=== PATIENT | female | born 1995 | race Caucasian/White ===

== ENCOUNTER 2023-10-12 15:27 | Outpatient (CLI) | payer OTHER, SELFPAY ==
[2023-10-12 17:59] LABS: Alanine Aminotransferase 21 U/L (12-78); Albumin Level 4.5 g/dl (3.5-5.0); Alkaline Phosphatase 45 U/L (38-126); Aspartate Amino Transferase 31 U/L (14-36); Bilirubin,Direct 0.1 mg/dl (0.0-0.4); Bilirubin,Indirect 0.4 mg/dL (0.0-0.9); Bilirubin,Total 0.5 mg/dl (0.2-1.3); Bilirubin,Unconjugated 0.4 mg/dL (0.0-1.1); Total Protein,Serum 7.2 g/dl (6.3-8.2)
== END 2023-10-12 23:59 | disposition home or self-care (01) ==
LOC: LAB 15:30
PROVIDERS: Visit Provider Internal Medicine Nephrology
DX: Q61.2 Polycystic kidney, adult type (principal)
CPT/HCPCS: 36415; 80076

== ENCOUNTER 2023-11-17 10:52 | Outpatient (CLI) | payer OTHER, SELFPAY ==
[2023-11-17 11:35] LABS: Alanine Aminotransferase 18 U/L (12-78); Aspartate Amino Transferase 28 U/L (14-36); Bilirubin,Unconjugated 0.5 mg/dL (0.0-1.1)
[2023-11-17 11:36] LABS: Albumin Level 4.8 g/dl (3.5-5.0); Alkaline Phosphatase 45 U/L (38-126); Bilirubin,Indirect 0.4 mg/dL (0.0-0.9); Bilirubin,Total 0.4 mg/dl (0.2-1.3); Total Protein,Serum 7.8 g/dl (6.3-8.2)
== END 2023-11-17 23:59 | disposition home or self-care (01) ==
LOC: LAB 10:53
PROVIDERS: Visit Provider Internal Medicine Nephrology
DX: Q61.2 Polycystic kidney, adult type (principal)
CPT/HCPCS: 36415; 80076

== ENCOUNTER 2023-11-27 16:40 | Outpatient (CLI) | payer OTHER, SELFPAY ==
[2023-11-27 16:58] LABS: Microscopic, Urine URINE MICROSCOPIC (MICROSCOPIC)
[2023-11-27 17:34] LABS: Basophils # 0.1 K/mm3 (0-0.2); Basophils % 0.8 % (0.1-2.0); Eosinophils # 0.1 K/mm3 (0.0-0.4); Eosinophils % 0.9 % (0.1-12.0); Hematocrit 38.2 % (37.0-47.0); Hemoglobin 12.7 g/dL (12.2-16.2); Lymphocytes # 2.1 K/mm3 (0.7-4.5); Lymphocytes % 32.8 % (10-50); Mean Corpuscular HGB Conc 33.2 g/dL (31.8-35.4); Mean Corpuscular Hemoglobin 31.5 pg (27.0-31.2); Mean Corpuscular Volume 94.9 fl (81-99); Monocytes # 0.4 K/mm3 (0.1-1.0); Monocytes % 6.2 % (1.7-9.3); Neutrophils # 3.8 K/mm3 (1.8-7.8); Neutrophils % 59.3 % (37.0-80.0); Platelet Count 282 K/mm3 (142-424); Red Blood Count 4.03 M/mm3 (4.20-5.40); White Blood Count 6.4 K/mm3 (4.8-10.8)
[2023-11-27 17:50] LABS: Chloride 107 mmol/L (98-107); Potassium 3.9 mmoL/L (3.5-5.1); Sodium 140 mmol/L (136-145)
[2023-11-27 17:52] LABS: Bilirubin,Unconjugated 0.6 mg/dL (0.0-1.1); Blood Urea Nitrogen 12 mg/dl (7-17); Estimated Glomerular Filt Rate 60 ml/min (>60); GFR (African American) 72 ML/MIN (>60)
[2023-11-27 17:53] LABS: Alanine Aminotransferase 19 U/L (12-78); Albumin Level 4.8 g/dl (3.5-5.0); Alkaline Phosphatase 52 U/L (38-126); Anion Gap 11.9 mEq/L (5-15); Aspartate Amino Transferase 29 U/L (14-36); Bilirubin,Indirect 0.6 mg/dL (0.0-0.9); Bilirubin,Total 0.6 mg/dl (0.2-1.3); Calcium 10.3 mg/dl (8.4-10.2); Carbon Dioxide 25 mmol/L (22.0-30.0); Glucose 94 mg/dl (74-100); Phosphorous 3.7 mg/dl (2.5-4.5); Total Protein,Serum 7.8 g/dl (6.3-8.2)
[2023-11-27 20:27] LABS: Appearance,Urine CLEAR (Clear); Bilirubin,Urine Negative (Negative); Blood, Urine 1+ (Negative); Color,Urine YELLOW (Yellow); Glucose,Urine (UA) Negative (Negative); Ketones,Urine Negative (Negative); Leukocyte Esterase,Urine Negative (Negative); Nitrate,Urine Negative (Negative); PH,Urine 6.5 (5.0-8.5); Protein,Urine TRACE (Negative); Specific Gravity, Urine <= 1.005 (1.005-1.030); Urobilinogen,Urine 0.2 EU/dl (0.2)
[2023-11-27 20:43] LABS: Microalbumin/Creatinine Ratio 725.9
[2023-11-27 20:48] LABS: Creatinine,Urine Random 22 mg/dL (Not Estab.)
[2023-11-27 20:50] LABS: Bacteria,Urine 1+ /lpf; Squamous Epithelial Cell,Urine 20-50 #/hpf (0-5)
== END 2023-11-27 23:59 | disposition home or self-care (01) ==
LOC: LAB 16:42
PROVIDERS: Visit Provider Internal Medicine Nephrology
DX: Q61.2 Polycystic kidney, adult type (principal)
CPT/HCPCS: 36415; 80069; 80076; 81001; 82043; 82570; 84156; 85025

== ENCOUNTER 2023-12-14 14:30 | Outpatient (CLI) | payer OTHER, SELFPAY ==
[2023-12-14 16:04] LABS: Alanine Aminotransferase 20 U/L (12-78); Albumin Level 4.6 g/dl (3.5-5.0); Albumin/Globulin Ratio 1.5 (1.1-1.8); Alkaline Phosphatase 44 U/L (38-126); Anion Gap 11.5 mEq/L (5-15); Aspartate Amino Transferase 30 U/L (14-36); Bilirubin,Indirect 0.5 mg/dL (0.0-0.9); Bilirubin,Total 0.5 mg/dl (0.2-1.3); Bilirubin,Unconjugated 0.6 mg/dL (0.0-1.1); Blood Urea Nitrogen 18 mg/dl (7-17); Calcium 9.8 mg/dl (8.4-10.2); Carbon Dioxide 26 mmol/L (22.0-30.0); Chloride 107 mmol/L (98-107); Estimated Glomerular Filt Rate 67 ml/min (>60); GFR (African American) 80 ML/MIN (>60); Glucose 99 mg/dl (74-100); Potassium 3.5 mmoL/L (3.5-5.1); Sodium 141 mmol/L (136-145); Total Protein,Serum 7.6 g/dl (6.3-8.2)
== END 2023-12-14 23:59 | disposition home or self-care (01) ==
LOC: LAB 14:33
PROVIDERS: Visit Provider Internal Medicine Nephrology
DX: Q61.2 Polycystic kidney, adult type (principal)
CPT/HCPCS: 36415; 80053; 80076

== ENCOUNTER 2024-01-18 07:22 | Outpatient (CLI) | payer OTHER, SELFPAY ==
[2024-01-18 08:29] LABS: Albumin Level 4.5 g/dl (3.5-5.0)
[2024-01-18 08:31] LABS: Alanine Aminotransferase 24 U/L (12-78); Aspartate Amino Transferase 32 U/L (14-36); Bilirubin,Unconjugated 0.8 mg/dL (0.0-1.1); Total Protein,Serum 7.1 g/dl (6.3-8.2)
[2024-01-18 08:32] LABS: Alkaline Phosphatase 42 U/L (38-126); Bilirubin,Indirect 0.8 mg/dL (0.0-0.9); Bilirubin,Total 0.8 mg/dl (0.2-1.3)
== END 2024-01-18 23:59 | disposition home or self-care (01) ==
LOC: LAB 07:22
PROVIDERS: Visit Provider Internal Medicine Nephrology
DX: Q61.2 Polycystic kidney, adult type (principal)
CPT/HCPCS: 36415; 80076

== ENCOUNTER 2024-02-13 15:09 | Outpatient (CLI) | payer OTHER, SELFPAY ==
[2024-02-13 16:39] LABS: Alanine Aminotransferase 23 U/L (12-78); Albumin Level 4.6 g/dl (3.5-5.0); Alkaline Phosphatase 38 U/L (38-126); Aspartate Amino Transferase 30 U/L (14-36); Bilirubin,Direct 0.2 mg/dl (0.0-0.4); Bilirubin,Indirect 0.3 mg/dL (0.0-0.9); Bilirubin,Total 0.5 mg/dl (0.2-1.3); Bilirubin,Unconjugated 0.3 mg/dL (0.0-1.1); Total Protein,Serum 7.1 g/dl (6.3-8.2)
== END 2024-02-13 23:59 | disposition home or self-care (01) ==
LOC: LAB 15:10
PROVIDERS: Visit Provider Internal Medicine Nephrology
DX: Q61.2 Polycystic kidney, adult type (principal)
CPT/HCPCS: 36415; 80076

== ENCOUNTER 2024-02-27 15:22 | Outpatient (CLI) | payer OTHER, SELFPAY ==
[2024-02-27 15:39] LABS: Microscopic, Urine URINE MICROSCOPIC (MICROSCOPIC)
[2024-02-27 16:07] LABS: Appearance,Urine CLEAR (Clear); Bilirubin,Urine Negative (Negative); Blood, Urine Negative (Negative); Color,Urine YELLOW (Yellow); Glucose,Urine (UA) Negative (Negative); Ketones,Urine Negative (Negative); Leukocyte Esterase,Urine TRACE (Negative); Nitrate,Urine Negative (Negative); Protein,Urine Negative (Negative); Specific Gravity, Urine <= 1.005 (1.005-1.030); Urobilinogen,Urine 0.2 EU/dl (0.2)
[2024-02-27 16:11] LABS: Basophils # 0.1 K/mm3 (0-0.2); Basophils % 0.8 % (0.1-2.0); Eosinophils # 0.1 K/mm3 (0.0-0.4); Hematocrit 38.8 % (37.0-47.0); Hemoglobin 13.3 g/dL (12.2-16.2); Lymphocytes # 1.9 K/mm3 (0.7-4.5); Lymphocytes % 33.3 % (10-50); Mean Corpuscular HGB Conc 34.4 g/dL (31.8-35.4); Mean Corpuscular Hemoglobin 31.9 pg (27.0-31.2); Mean Corpuscular Volume 92.9 fl (81-99); Mean Platelet Volume 7.3 fl (7.4-10.4); Monocytes # 0.4 K/mm3 (0.1-1.0); Monocytes % 6.6 % (1.7-9.3); Neutrophils # 3.3 K/mm3 (1.8-7.8); Neutrophils % 58.3 % (37.0-80.0); Platelet Count 255 K/mm3 (142-424); Red Blood Count 4.17 M/mm3 (4.20-5.40); Red Cell Distribution Width 12.9 % (11.5-17.5); White Blood Count 5.7 K/mm3 (4.8-10.8)
[2024-02-27 16:14] LABS: Bacteria,Urine Trace /lpf; RBC,Urine Occasional #/hpf (0-3); Squamous Epithelial Cell,Urine Occasional #/hpf (0-5); WBC,Urine Occasional #/hpf (0-3)
[2024-02-27 16:18] LABS: Creatinine,Urine Random 11 mg/dL (Not Estab.)
[2024-02-27 17:19] LABS: Albumin Level 4.8 g/dl (3.5-5.0); Chloride 105 mmol/L (98-107); Potassium 4.1 mmoL/L (3.5-5.1); Sodium 140 mmol/L (136-145)
[2024-02-27 17:22] LABS: Anion Gap 15.1 mEq/L (5-15); Blood Urea Nitrogen 17 mg/dl (7-17); Calcium 9.8 mg/dl (8.4-10.2); Carbon Dioxide 24 mmol/L (22.0-30.0); Estimated Glomerular Filt Rate 53 ml/min (>60); GFR (African American) 65 ML/MIN (>60); Glucose 88 mg/dl (74-100); Phosphorous 3.9 mg/dl (2.5-4.5)
== END 2024-02-27 23:59 | disposition home or self-care (01) ==
LOC: LAB 15:23
PROVIDERS: Visit Provider Student in an Organized Health Care Education/Training Program
DX: Q61.2 Polycystic kidney, adult type (principal)
CPT/HCPCS: 36415; 80069; 81001; 82570; 84156; 85025

== ENCOUNTER 2024-03-19 14:42 | Outpatient (CLI) | payer OTHER, SELFPAY ==
[2024-03-19 16:05] LABS: Alanine Aminotransferase 20 U/L (12-78); Albumin Level 4.6 g/dl (3.5-5.0); Albumin/Globulin Ratio 1.9 (1.1-1.8); Alkaline Phosphatase 29 U/L (38-126); Anion Gap 13.1 mEq/L (5-15); Aspartate Amino Transferase 28 U/L (14-36); Bilirubin,Direct 0.3 mg/dl (0.0-0.4); Bilirubin,Total 0.5 mg/dl (0.2-1.3); Blood Urea Nitrogen 19 mg/dl (7-17); Calcium 9.3 mg/dl (8.4-10.2); Carbon Dioxide 24 mmol/L (22.0-30.0); Chloride 106 mmol/L (98-107); Estimated Glomerular Filt Rate 75 ml/min (>60); GFR (African American) 90 ML/MIN (>60); Globulin 2.4 g/dL (1.3-3.2); Glucose 73 mg/dl (74-100); Potassium 4.1 mmoL/L (3.5-5.1); Sodium 139 mmol/L (136-145)
== END 2024-03-19 23:59 | disposition home or self-care (01) ==
LOC: LAB 14:43
PROVIDERS: Visit Provider Internal Medicine Nephrology
DX: Q61.2 Polycystic kidney, adult type (principal)
CPT/HCPCS: 36415; 80053; 82248

== ENCOUNTER 2024-05-16 12:38 | Outpatient (CLI) | payer OTHER, SELFPAY ==
[2024-05-16 12:43] LABS: Microscopic, Urine URINE MICROSCOPIC (MICROSCOPIC)
[2024-05-16 12:53] LABS: Hematocrit 38.7 % (37.0-47.0); Hemoglobin 13.3 g/dL (12.2-16.2); Mean Corpuscular HGB Conc 34.4 g/dL (31.8-35.4); Mean Corpuscular Hemoglobin 31.4 pg (27.0-31.2); Mean Corpuscular Volume 91.3 fl (81-99); Platelet Count 255 K/mm3 (142-424); Red Blood Count 4.24 M/mm3 (4.20-5.40); Red Cell Distribution Width 11.7 % (11.5-17.5); White Blood Count 6.2 K/mm3 (4.8-10.8)
[2024-05-16 13:28] LABS: Appearance,Urine CLEAR (Clear); Bilirubin,Urine Negative (Negative); Blood, Urine Negative (Negative); Color,Urine YELLOW (Yellow); Glucose,Urine (UA) Negative (Negative); Ketones,Urine Negative (Negative); Leukocyte Esterase,Urine Negative (Negative); Nitrate,Urine Negative (Negative); Protein,Urine Negative (Negative); Urobilinogen,Urine 0.2 EU/dl (0.2)
[2024-05-16 13:35] LABS: Alanine Aminotransferase 21 U/L (12-78); Albumin Level 5.3 g/dl (3.5-5.0); Alkaline Phosphatase 35 U/L (38-126); Anion Gap 12.8 mEq/L (5-15); Aspartate Amino Transferase 34 U/L (14-36); Bilirubin,Direct 0.3 mg/dl (0.0-0.4); Bilirubin,Indirect 0.7 mg/dL (0.0-0.9); Bilirubin,Unconjugated 0.8 mg/dL (0.0-1.1); Blood Urea Nitrogen 13 mg/dl (7-17); Calcium 10.2 mg/dl (8.4-10.2); Carbon Dioxide 25 mmol/L (22.0-30.0); Chloride 104 mmol/L (98-107); Estimated Glomerular Filt Rate 66 ml/min (>60); GFR (African American) 80 ML/MIN (>60); Glucose 101 mg/dl (74-100); Phosphorous 3.8 mg/dl (2.5-4.5); Potassium 3.8 mmoL/L (3.5-5.1); Sodium 138 mmol/L (136-145); Total Protein,Serum 7.8 g/dl (6.3-8.2)
[2024-05-16 14:03] LABS: Creatinine,Urine Random 48 mg/dL (Not Estab.)
[2024-05-16 14:06] LABS: Bacteria,Urine Trace /lpf; Squamous Epithelial Cell,Urine Occasional #/hpf (0-5)
== END 2024-05-16 23:59 | disposition home or self-care (01) ==
LOC: LAB 12:38
PROVIDERS: Visit Provider Internal Medicine Nephrology
DX: Q61.2 Polycystic kidney, adult type (principal)
CPT/HCPCS: 36415; 80069; 80076; 81001; 82043; 82570; 84156; 85027

== ENCOUNTER 2024-05-30 09:52 | Inpatient (IN) | payer OTHER, SELFPAY ==
[2024-05-30] VITALS (13 sets, daily range): BP systolic 102–138; BP diastolic 58–93; PULSE 92–123; RESP 17–20; TEMP 36.8–37.7; O2SAT 95–100; BMI 22.8; BMI 22.7
[2024-05-30 10:07] LABS: Microscopic, Urine URINE MICROSCOPIC (MICROSCOPIC)
[2024-05-30 10:13] LABS: Appearance,Urine CLOUDY (Clear); Blood, Urine 3+ (Negative); Color,Urine AMBER (Yellow); Glucose,Urine (UA) Negative (Negative); Ketones,Urine Negative (Negative); Leukocyte Esterase,Urine TRACE (Negative); Nitrate,Urine Negative (Negative); PH,Urine 6.5 (5.0-8.5); Protein,Urine 2+ (Negative); Urobilinogen,Urine 0.2 EU/dl (0.2)
[2024-05-30 10:14] LABS: Urine Pregnancy, HCG Qual. Negative (Negative)
--- NOTE | 2024-05-30 10:17 | CT_ITS ---
FINAL REPORT TECHNIQUE: IV contrast enhanced exam This study was performed with techniques to keep radiation doses as low as reasonably achievable, (ALARA). Individualized dose reduction techniques using automated exposure control or adjustment of mA and/or kV according to the patient''s size were employed. CLINICAL HISTORY: pyelo, cf renal abscess FINDINGS: Abdomen: No acute density is seen within the lung bases. There is mild hepatosplenomegaly. Spleen measures up to 12.8 cm. There is significant renal enlargement, due to polycystic renal disease. Many of the renal lesions are complex, presumably related to proteinaceous cysts although soft tissue mass is not excluded. The kidneys are significantly enlarged with the left side measuring up to 17.3 cm. The renal parenchyma is difficult to evaluate due to cystic disease largely replacing the parenchyma. However, right perinephric stranding makes findings suspicious for right-sided pyelonephritis. There is no associated obstruction. Secondary infection of a lower pole right renal cyst cannot be excluded. There is no bowel obstruction or free fluid. Pelvis: The appendix is not visualized. An IUD is in place. There is fluid and air within the vaginal cavity which could be related to patient's menses, however if there has been no physical exam, presence of air raises question of infection. The urinary bladder is unremarkable. IMPRESSION: Inflammatory changes surrounding the lower pole right kidney suspicious for pyelonephritis, secondary infection of lower pole right renal cyst is not excluded. No evidence of upper urinary tract infection. Air in good within the vaginal cavity, infection not excluded although this could be related to patient's menses. Please correlate with clinical presentation. Reviewed, Interpreted and Dictated by Viloeta Yanez MD Transcribed by Beverly Nichols Authenticated and [facility]
[2024-05-30] MEDS: HYDROMORPHONE 2MG/ML SYRINGE 0.5 MG IV ×4 (10:21→20:38)
[2024-05-30] MEDS: LACTATED RINGERS 1000ML 1,000 ML 999 ML IV (10:21)
[2024-05-30] MEDS: ONDANSETRON 4MG/2ML VIAL 4 MG IV (10:21)
[2024-05-30 10:24] LABS: Basophils % 0.2 % (0.1-2.0); Chloride 96 mmol/L (98-107); Eosinophils % 0.2 % (0.1-12.0); Hematocrit 34.6 % (37.0-47.0); Hemoglobin 11.9 g/dL (12.2-16.2); Lymphocytes # 0.5 K/mm3 (0.7-4.5); Lymphocytes % 4.2 % (10-50); Mean Corpuscular HGB Conc 34.4 g/dL (31.8-35.4); Mean Corpuscular Hemoglobin 30.8 pg (27.0-31.2); Mean Corpuscular Volume 89.6 fl (81-99); Mean Platelet Volume 9.2 fl (7.4-10.4); Monocytes # 0.9 K/mm3 (0.1-1.0); Monocytes % 6.9 % (1.7-9.3); Neutrophils # 10.8 K/mm3 (1.8-7.8); Neutrophils % 87.7 % (37.0-80.0); Platelet Count 272 K/mm3 (142-424); Potassium 4.1 mmoL/L (3.5-5.1); Red Blood Count 3.86 M/mm3 (4.20-5.40); Red Cell Distribution Width 12.1 % (11.5-17.5); Sodium 130 mmol/L (136-145); White Blood Count 12.4 K/mm3 (4.8-10.8)
[2024-05-30 10:27] LABS: Alanine Aminotransferase 24 U/L (12-78); Albumin/Globulin Ratio 1.1 (1.1-1.8); Alkaline Phosphatase 169 U/L (38-126); Anion Gap 12.1 mEq/L (5-15); Aspartate Amino Transferase 28 U/L (14-36); Bilirubin,Total 0.6 mg/dl (0.2-1.3); Blood Urea Nitrogen 8 mg/dl (7-17); Carbon Dioxide 26 mmol/L (22.0-30.0); Creatinine Clearance Estimated 68 mL/min (50-200); Estimated Glomerular Filt Rate 59 ml/min (>60); GFR (African American) 72 ML/MIN (>60); Globulin 3.6 g/dL (1.3-3.2); Total Protein,Serum 7.6 g/dl (6.3-8.2)
[2024-05-30 10:28] LABS: Bilirubin,Urine 1+ (Negative)
[2024-05-30 10:28] LABS: Calcium 9.5 mg/dl (8.4-10.2); Glucose 111 mg/dl (74-100)
--- NOTE | 2024-05-30 10:31 | HMH.EDGENADL ---
Discharge Plan Disposition Patient Disposition: Admitted Referrals Follow up/Referrals: Provider,Referral, [Primary Care Provider] - See instructions Clinical Impressions Clinical Impression: Pyelonephritis Instructions Patient Instructions: DI for Acute Abdominal Pain Print Language Print Language: Turkmen Discharge ED Provider: Ken Sutton General Adult HPI General Chief complaint: Abdominal Pain Stated complaint: abd pain x 4 days, vomiting, Time Seen by Provider: 05/30/24 10:16 Mode of Arrival: Ambulatory Source of Information: Patient Limitations: No Limitations Description of Symptoms (Recalled from ER Triage Doc. by RN): abdominal pain,pt has polycystic kidney disease. x1 week. worsened despite antibiotics History of Present Illness HPI narrative: This is a 29-year-old female with a history of polycystic kidney disease who presents with worsening abdominal pain, right flank pain, and nausea/vomiting. Was on her honeymoon in [place] whenever she began to experience right flank pain on Monday. States that she got a flight back and was evaluated at hospital in [place] on Monday where she was diagnosed with pyelonephritis. Initiated on Levaquin and Bactrim. Followed up with nephrology yesterday and states that she was feeling better however began to experience worsening nausea/vomiting, fever to 103, and abdominal pain last night. Related Data Allergies Allergy/AdvReac Type Severity Reaction Status Date / Time sulfamethoxazole (From Allergy Unknown I-RASH Verified 05/30/24 11:00 BACTRIM) trimethoprim (From BACTRIM) Allergy Unknown I-RASH Verified 05/30/24 11:00 PFSH PFS Disclaimer: The information contained in this section may have been updated after the patient was seen, as this information can be updated by other users. Social History Smoking Status: Never smoker alcohol intake: never current occupational status: employed Travel in the last 8 weeks: Outside the [facility] ROS Obtained: Yes All systems reviewed & no additional complaints except as documented Physical Exam General General appearance: alert and in no apparent distress Comment: Ill-appearing Eye Eye exam: Present normal appearance, PERRL and EOMI Respiratory Respiratory exam: Present normal lung sounds bilaterally; Absent respiratory distress Cardiovascular Cardiovascular exam: Present regular rate and normal rhythm Abdominal Exam Abdominal exam: Present soft, distention and tenderness (Suprapubic); Absent guarding or rebound Comment: Right flank tenderness Extremities Exam Extremities exam: Present normal inspection Neurological Exam Neurological exam: Present alert and oriented X3 Skin Skin exam: Present warm and dry Medical Decision Making Medical Records Medical records reviewed: Yes I reviewed the patient's medical records. Screening: Per USPSTF and CDC recommendations, given the prevalence of disease in our region, it is our hospital?s policy to screen for HIV and viral Hepatitis for all patients aged 18 and over and those with ongoing risk factors. Red Inquiry Pt receiving controlled substance: No Vital Signs: 05/30/24 09:53 05/30/24 10:00 05/30/24 11:00 Temperature 99.2 F Temperature Source Oral Pulse Rate 108 H 100 H Pulse Rate [Right] 123 H Respiratory Rate 20 Blood Pressure 138/93 H 116/68 Blood Pressure [Right Arm] 138/93 H Blood Pressure Mean [Right Arm] 108 02 Sat by Pulse Oximetry 100 99 98 Oxygen Delivery Method Room Air Room Air Room Air 05/30/24 11:30 05/30/24 12:30 05/30/24 13:15 Temperature Temperature Source Pulse Rate 95 H 92 H 93 H Pulse Rate [Right] Respiratory Rate Blood Pressure 111/68 105/58 L 119/70 Blood Pressure [Right Arm] Blood Pressure Mean [Right Arm] 02 Sat by Pulse Oximetry 98 99 100 Oxygen Delivery Method Room Air Room Air Room Air 05/30/24 13:30 Temperature Temperature Source Pulse Rate 94 H Pulse Rate [Right] Respiratory Rate Blood Pressure 102/58 L Blood Pressure [Right Arm] Blood Pressure Mean [Right Arm] 02 Sat by Pulse Oximetry 96 Oxygen Delivery Method Room Air Lab Data Lab Results 05/30/24 09:58: Urine Color Matilde, Urine Appearance Cloudy, Urine pH 6.5, Ur Specific [place] 1.020, Urine Protein 2+ A, Urine Glucose (UA) Negative, Urine Ketones Negative, Urine Blood 3+ A, Urine Nitrate Negative, Urine Bilirubin 1+ A, Urine Urobilinogen 0.2, Ur Leukocyte Esterase Trace, Urine RBC Tntc, Urine WBC 3-5, Ur Squamous Epith Cells 5-10, Urine Bacteria Trace, Urine HCG, Qual Negative 05/30/24 10:10: WBC 12.4 H, RBC 3.86 L, Hgb 11.9 L, Hct 34.6 L, MCV 89.6, MCH 30.8, MCHC 34.4, RDW 12.1, Plt Count 272, MPV 9.2, Neut % (Auto) 87.7 H, Lymph % (Auto) 4.2 L, [place] % (Auto) 6.9, Eos % (Auto) 0.2, Baso % (Auto) 0.2, Neut # (Auto) 10.8 H, Lymph # (Auto) 0.5 L, [place] # (Auto) 0.9, Eos # (Auto) 0.0, Baso # (Auto) 0.0, Sodium 130 L, Potassium 4.1, Chloride 96 L, Carbon Dioxide 26, Anion Gap 12.1, BUN 8, Creatinine 1.10 H, Estimated Creat Clear 68, Estimated GFR 59, Est GFR ( Amer) 72, Glucose 111 H, Calcium 9.5, Total Bilirubin 0.6, AST 28, ALT 24, Alkaline Phosphatase 169 H, Total Protein 7.6, Albumin 4.0, Globulin 3.6 H, Albumin/Globulin Ratio 1.1, Serum HCG, Qual Negative, HCV Ab DONTRELL w/Rflx PCR Qn Negative, HIV Ag/Ab Combo Qual Negative 05/30/24 10:10 05/30/24 10:10 Orders (Tests/Meds): ED MEDICATIONS Discontinued Medications Generic Name Dose Route Start Last Admin Trade Name Freq PRN Reason Stop Dose Admin Hydromorphone HCl 0.5 mg 05/30/24 10:17 05/30/24 10:21 Hydromorphone 2mg/Ml Syringe IV 05/30/24 10:18 0.5 mg ONCE ONE Administration Lactated Ringer's 1,000 mls @ 999 mls/hr 05/30/24 10:16 05/30/24 10:21 Lactated Ringer's 1000 Ml Bag IV 05/30/24 11:16 999 mls/hr .Q1H1M ONE Administration Ceftriaxone Sodium 2 gm/ 100 mls @ 200 mls/hr 05/30/24 11:15 05/30/24 11:10 Sodium Chloride IV 05/30/24 11:44 200 mls/hr ONCE ONE Administration Iopamidol 75 ml 05/30/24 10:41 05/30/24 10:47 Iopamidol-370 (76%);100ml Bottle IV 05/30/24 10:42 75 ml ONCE ONE Administration Ondansetron HCl 4 mg 05/30/24 10:16 05/30/24 10:21 Ondansetron 4mg/2ml Vial IV 05/30/24 10:17 4 mg ONCE ONE Administration Sodium Chloride 10 ml 05/30/24 10:41 05/30/24 10:47 Sodium Chloride 0.9% 10ml Syr (Rad Only) IV 05/30/24 10:42 10 ml ONCE ONE Administration ORDERS Category Date Time Status CT abdomen pelvis w con Stat Cat Scan 05/30/24 10:17 Completed CBC w/Auto Diff [Complete Blood Count Auto Diff] Stat Lab 05/30/24 10:10 Completed CMP [Comprehensive Metabolic Panel] Stat Lab 05/30/24 10:10 Completed HCG Qualitative, Serum Stat Lab 05/30/24 10:10 Completed HIV Combo Stat Lab 05/30/24 10:10 Completed Hepatitis C Ab Qual. W/ RFX Stat Lab 05/30/24 10:10 Completed Urinalysis and Microscopic Stat Lab 05/30/24 09:58 Completed Urine , HCG Qual. Stat Lab 05/30/24 09:58 Completed Blood Culture Stat Micro 05/30/24 11:00 Received Medical Decision Narrative: In summary, this 29-year-old female with polycystic kidney disease presents to the emergency department today with right flank pain, nausea/vomiting, and fever. On initial evaluation patient is mildly tachycardic, normotensive, afebrile. Differential diagnosis includes but is not limited to pyelonephritis, renal abscess, UTI, sepsis. Based on these concerns, I ordered blood cultures, CBC, CMP, test, urinalysis, CT abdomen pelvis with IV contrast. Patient received 1 L of lactated Ringer's and ceftriaxone 2 g for treatment. Administered Dilaudid for pain. Labs personally reviewed demonstrate white blood cell count of 12.4, sodium of 130, creatinine of 1.10 from a baseline of 1, negative test. CT imaging personally interpreted demonstrates CT evidence of right-sided pyelonephritis. No perinephric abscess. Consulted hospital medicine for admission. Patient ultimately admitted to their service. Critical Care Critical Care Time Critical Care Time: No
[2024-05-30 10:44] LABS: Bacteria,Urine Trace /lpf; RBC,Urine TNTC #/hpf (0-3)
[2024-05-30 10:44] LABS: HCG Qualitative, Serum Negative (Negative)
[2024-05-30] MEDS: SODIUM CHLORIDE 0.9% 10ML SYR (RAD ONLY) 10 ML IV (10:47)
[2024-05-30] MEDS: IOPAMIDOL-370 (76%);100ML BOTTLE 75 ML IV (10:47)
[2024-05-30] MEDS: CEFTRIAXONE SODIUM 2 GM in 0.9 % SODIUM CHLORIDE 100 ML IV (11:10)
[2024-05-30 11:28] LABS: HIV Combo NEGATIVE (Negative)
[2024-05-30 11:35] LABS: Hepatitis C Ab Qual. W/ RFX NEGATIVE (Negative)
--- NOTE | 2024-05-30 11:36 | PC.NURSE ---
Rounded on patient; pillow given for comfort, no other needs at this time.
--- NOTE | 2024-05-30 13:39 | PC.NURSE ---
DR MONTILLA SPEAKING WITH HOSPITALIST FOR ADMISSION
--- NOTE | 2024-05-30 13:45 | PC.NURSE ---
call made to warehouse technician for bed placement, pylonephritis.
--- NOTE | 2024-05-30 14:11 | PC.NURSE ---
report called to Neymar
--- NOTE | 2024-05-30 14:17 | PC.NURSE ---
Pt given warm blanket for comfort
--- NOTE | 2024-05-30 14:45 | HMH.PHAINT1 ---
Pharmacy Intervention Comments: MEDICATION RECONCILIATION COMPLETED ON PATIENT USING EXTERNAL FILL HISTORY FROM PHARMACY. -FLIP BLANK, JENNIFERD
--- NOTE | 2024-05-30 17:39 | PC.NURSE ---
AOX4, ABD IS FIRM, TENDER ON PALPATION, WITH GUARDING NOTED. PT TOLERATING ORAL FLUIDS BUT DOES NOT WANT SOLID FOODS. MEDICATED FOR PAIN ONCE PER MAR SINCE ARRIVAL TO FLOOR.
--- NOTE | 2024-05-30 18:59 | P.HP_ITS ---
History of Present Illness *Admission Date: 05/23/24 *Reason for visit:: Pyelonephritis *History of present illness: Dulce Torres is a 29-year-old female with a medical history significant for polycystic kidney disease who presents for worsening kidney pain. She was recently diagnosed with UTI and pyelonephritis at [facility] after abruptly returning from her [place]. She was started on Bactrim and Levaquin, which she has been on for 4 days. Bactrim was discontinued due to bump in kidney function as advised per her health care technician at . 2 days ago, patient states she started feeling better and followed up with her health care technician. However, yesterday she began having fever up to 103 Fahrenheit and today she began having nausea/vomiting which prompted her to come to the ED at the advice of her health care technician. CT abdomen/pelvis revealed findings suggestive of right pyelonephritis with a possible right renal cyst infection. WBC 12.4, with tachycardia. Case discussed with ED provider, and there was some initial discussion about transferring patient to where there is nephrology in the setting of possible renal cyst infection and probably cystic kidney disease. However, ultimately decision was made to admit patient for trial of IV antibiotics before considering transfer. [facility] Disclaimer: The information contained in this section may have been updated after the patient was seen, as this information can be updated by other users. Medical History (Updated 05/30/24 @ 17:46 by Dinorah Patino RN) HTN (hypertension) GERD (gastroesophageal reflux disease) Polycystic kidney disease Surgical History (Updated 05/30/24 @ 17:47 by Dinorah Patino RN) Hx laparoscopic cholecystectomy Social History (Updated 05/30/24 @ 16:29 by Dinorah Patino RN) Smoking Status: Never smoker alcohol intake: never current occupational status: employed Travel in the last 8 weeks: Outside the continental [place] Have you lived/traveled outside US in past 30 days?: No Contact w/someone who lives/traveled outside US past 30 days?: No Exposure to someone with infectious disease in past 14 days?: No Do you have a fever (greater than 100.4 F or 38 C)?: No Have you tested positive for COVID-19: No Exposed to someone with COVID-19 in past 14 days?: No Do you have a sore throat?: No Do you have a cough?: No Do you have any weakness?: No Are you experiencing any nausea/vomitting?: No Do you have any diarrhea?: No Are you experiencing any unusual bleeding?: No Do you have any muscle aches/pain?: No Do you have any abdominal pain?: Yes Are you experiencing loss of taste or smell?: No Other Medical History Have you received the Flu Vaccine for this season: Yes Have you received the Pneumonia Vaccine: No Meds Home Medications and Allergies Home Medications ?Medication ?Instructions ?Recorded ?Confirmed ?Type ibuprofen 800 mg tablet 800 mg PO Q8HP PRN Mild Pain 05/30/24 05/30/24 History (Scale Score 1-4) levofloxacin 500 mg tablet 500 mg PO DAILY 05/30/24 05/30/24 History lisinopril 10 mg tablet 10 mg PO DAILY 05/30/24 05/30/24 History norethindrone 1 mg-ethinyl 1 tab PO DIRECTED 05/30/24 05/30/24 History estradiol 20 mcg (21)-iron 75 mg (7) tablet omeprazole 20 mg capsule,delayed 20 mg PO DAILY 05/30/24 05/30/24 History release sulfamethoxazole 800 1 tab PO BID 05/30/24 05/30/24 History mg-trimethoprim 160 mg tablet New Prescriptions to Start Prescriptions: Allergies Allergy/AdvReac Type Severity Reaction Status Date / Time sulfamethoxazole (From Allergy Unknown I-RASH Verified 05/30/24 11:00 BACTRIM) trimethoprim (From BACTRIM) Allergy Unknown I-RASH Verified 05/30/24 11:00 Exam Data for Last 24 hours Vital signs and Labs for Last 24 Hours: Temp Pulse Resp BP Pulse Ox O2 Del Method 98.2 F 111 H 17 117/61 95 Room Air 05/30/24 15:52 05/30/24 15:52 05/30/24 15:52 05/30/24 15:52 05/30/24 15:52 05/30/24 17:00 Laboratory Results - last 24 hr 05/30/24 09:58: Urine Color Matilde, Urine Appearance Cloudy, Urine pH 6.5, Ur Specific [place] 1.020, Urine Protein 2+ A, Urine Glucose (UA) Negative, Urine Ketones Negative, Urine Blood 3+ A, Urine Nitrate Negative, Urine Bilirubin 1+ A , Urine Urobilinogen 0.2, Ur Leukocyte Esterase Trace, Urine RBC Tntc, Urine WBC 3-5, Ur Squamous Epith Cells 5-10, Urine Bacteria Trace, Urine HCG, Qual Negative 05/30/24 10:10: WBC 12.4 H, RBC 3.86 L, Hgb 11.9 L, Hct 34.6 L, MCV 89.6, MCH 30.8, MCHC 34.4, RDW 12.1, Plt Count 272, MPV 9.2, Neut % (Auto) 87.7 H, Lymph % (Auto) 4.2 L, [place] % (Auto) 6.9, Eos % (Auto) 0.2, Baso % (Auto) 0.2, Neut # (Auto) 10.8 H, Lymph # (Auto) 0.5 L, [place] # (Auto) 0.9, Eos # (Auto) 0.0, Baso # (Auto) 0.0, Sodium 130 L, Potassium 4.1, Chloride 96 L, Carbon Dioxide 26, Anion Gap 12.1, BUN 8, Creatinine 1.10 H, Estimated Creat Clear 68, Estimated GFR 59, Est GFR ( Amer) 72, Glucose 111 H, Calcium 9.5, Total Bilirubin 0.6, AST 28, ALT 24, Alkaline Phosphatase 169 H, Total Protein 7.6, Albumin 4.0, Globulin 3.6 H, Albumin/Globulin Ratio 1.1, Serum HCG, Qual Negative, HCV Ab DONTRELL w/Rflx PCR Qn Negative, HIV Ag/Ab Combo Qual Negative I & O for Last 24 hours: Intake & Output 05/27/24 05/28/24 05/29/24 05/30/24 23:59 23:59 23:59 23:59 Output Total 0 / 0 Balance 0 / 0 Weight 56.472 kg Constitutional Constitutional: no acute distress *Routine HEENT Exam Head: Present normocephalic Eye: Present EOMI and PERRL ENT: Present mucous membranes moist *Routine Neck Exam Neck: Present supple; Absent lymphadenopathy *Routine Respiratory Exam Respiratory: Present CTA bilaterally *Routine Cardiovascular Exam Cardiovascular: Present RRR *Routine Abdominal Exam Abdominal: Present soft and normoactive bowel sounds; Absent tenderness Comments: Right CVA tenderness, right abdominal tenderness without peritoneal signs. *Routine Rectal Exam Rectal:: deferred *Routine Genitalia Exam Genitalia:: deferred *Routine Extremities Exam Extremities: Absent cyanosis, clubbing or edema *Routine Skin Exam Skin: Present warm; Absent rash *Routine Neurological Exam Neurological: Present alert and oriented X3 Assessment and Plan *Assessment and plan (1) Pyelonephritis: Status: Acute Category: Medical Code(s): N12 - Tubulo-interstitial nephritis, not specified as acute or chronic Plan Dulce Torres is a 29-year-old female with a medical history significant for polycystic kidney disease who presents for worsening kidney pain. She was recently diagnosed with UTI and pyelonephritis at [facility] She was started on Bactrim and Levaquin, which she has been on for 4 days. Bactrim was discontinued due to bump in kidney function as advised per her health care technician at . 2 days ago, patient states she started feeling better and followed up with her health care technician. However, yesterday she began having fever up to 103 Fahrenheit and today she began having nausea/vomiting which prompted her to come to the ED at the advice of her health care technician. CT abdomen/pelvis revealed findings suggestive of right pyelonephritis with a possible right renal cyst infection. WBC 12.4, with tachycardia. Case discussed with ED provider, and there was some initial discussion about transferring patient to where there is nephrology in the setting of possible renal cyst infection and probably cystic kidney disease. However, ultimately decision was made to admit patient for trial of IV antibiotics before considering transfer. #Sepsis #Pyelonephritis #Suspected infected renal cyst # History of probably cystic kidney disease ? CT abdomen/pelvis revealed findings suggestive of right pyelonephritis with a possible right renal cyst infection. Initial WBC 12.4, with tachycardia. ? IV ceftriaxone day 1. ? Patient's OSH urine culture revealed E. coli, though sensitivities not av ailable. ? Plan to reach out to health care technician tomorrow for further management advice for suspected infected renal cyst. ? Hold home lisinopril at this time. #GERD ? Resume home PPI. Full code DVT prophylaxis: Lovenox 40
[2024-05-30] MEDS: PANTOPRAZOLE 40MG TABLET 40 MG PO (20:37)
[2024-05-30] MEDS: LACTATED RINGERS 1000ML 1,000 ML 100 ML IV (20:38)
[2024-05-31] MEDS: HYDROMORPHONE 2MG/ML SYRINGE 0.5 MG IV ×4 (00:35→14:57)
[2024-05-31 04:00] VITALS: BP 120/68; PULSE 90; RESP 18; TEMP 36.9; O2SAT 100; BMI 23.9
[2024-05-31] MEDS: CEFTRIAXONE SODIUM 2 GM in 0.9 % SODIUM CHLORIDE 100 ML IV (05:59)
[2024-05-31] MEDS: HYDROMORPHONE 2MG/ML SYRINGE 1 MG IV ×3 (06:35→18:43)
[2024-05-31] MEDS: LACTATED RINGERS 1000ML 1,000 ML 100 ML IV ×3 (06:36→23:12)
[2024-05-31 06:58] LABS: Basophils # 0.1 K/mm3 (0-0.2); Basophils % 0.4 % (0.1-2.0); Eosinophils % 0.1 % (0.1-12.0); Hematocrit 30.4 % (37.0-47.0); Lymphocytes # 0.9 K/mm3 (0.7-4.5); Lymphocytes % 6.4 % (10-50); Mean Corpuscular HGB Conc 33.6 g/dL (31.8-35.4); Mean Corpuscular Hemoglobin 30.4 pg (27.0-31.2); Mean Corpuscular Volume 90.7 fl (81-99); Monocytes # 1.1 K/mm3 (0.1-1.0); Monocytes % 7.9 % (1.7-9.3); Neutrophils # 11.3 K/mm3 (1.8-7.8); Neutrophils % 84.7 % (37.0-80.0); Platelet Count 261 K/mm3 (142-424); Red Blood Count 3.35 M/mm3 (4.20-5.40); Red Cell Distribution Width 12.2 % (11.5-17.5); White Blood Count 13.4 K/mm3 (4.8-10.8)
[2024-05-31 07:01] LABS: Hemoglobin 10.2 g/dL (12.2-16.2)
[2024-05-31 07:08] LABS: Alanine Aminotransferase 18 U/L (12-78); Albumin Level 3.4 g/dl (3.5-5.0); Albumin/Globulin Ratio 1.1 (1.1-1.8); Alkaline Phosphatase 168 U/L (38-126); Anion Gap 14.1 mEq/L (5-15); Aspartate Amino Transferase 27 U/L (14-36); Bilirubin,Total 0.4 mg/dl (0.2-1.3); Blood Urea Nitrogen 8 mg/dl (7-17); Carbon Dioxide 25 mmol/L (22.0-30.0); Chloride 96 mmol/L (98-107); Creatinine Clearance Estimated 87 mL/min (50-200); Estimated Glomerular Filt Rate 75 ml/min (>60); GFR (African American) 90 ML/MIN (>60); Glucose 84 mg/dl (74-100); Magnesium 1.4 mg/dl (1.6-2.3); Potassium 4.1 mmoL/L (3.5-5.1); Sodium 131 mmol/L (136-145); Total Protein,Serum 6.4 g/dl (6.3-8.2)
[2024-05-31 08:00] VITALS: BP 124/70; PULSE 93; RESP 16; TEMP 37.3; O2SAT 98
[2024-05-31] MEDS: ENOXAPARIN 40MG/0.4ML SYRINGE 40 MG SUBCUT (08:43)
[2024-05-31] MEDS: POLYETHYLENE GLYCOL 3350 17 GM PACKET PO (08:43)
[2024-05-31] MEDS: MAGNESIUM SULFATE IN WATER 2 GM/50 ML PIGGYBACK IV ×3 (10:44→12:25)
[2024-05-31 11:37] VITALS: TEMP 37.2
[2024-05-31] MEDS: HYDROCODONE/APAP 5/325 MG TABLET 1 TAB PO ×3 (11:46→20:02)
--- NOTE | 2024-05-31 12:01 | CT_ITS ---
FINAL REPORT TECHNIQUE: Oral and IV contrast enhanced exam This study was performed with techniques to keep radiation doses as low as reasonably achievable, (ALARA). Individualized dose reduction techniques using automated exposure control or adjustment of mA and/or kV according to the patient''s size were employed. CLINICAL HISTORY: eval for appendicitis COMPARISON: 05/30/2024 FINDINGS: Abdomen: No acute density is seen within the lung bases. Polycystic renal disease is again identified. There are lower pole right renal calcifications, may be parenchymal or small stone disease. Persistent stranding is surrounding lower pole of the right kidney suggestive of inflammatory process. There is mild right hydronephrosis and urothelial thickening. No obstructing stone is identified. The remaining solid organs are unremarkable. No bowel obstruction is present. There is no adenopathy. There is moderate fecal impaction in the right colon. Pelvis: The appendix is not visualized. The bladder is distended without wall thickening. There is a small amount of fluid in the vaginal cavity, mildly improved. Note is made of trace free fluid, nonspecific. IMPRESSION: Persistent stranding surrounding the lower pole right kidney suggestive of inflammatory process. Mild right hydronephrosis without definite obstructing stone. This degree of hydronephrosis can be seen with infection. Any further contrast-enhanced imaging of the kidney should include delayed images to allow excretion of contrast and better visualization of the renal collecting system. Nonvisualized appendix. No bowel obstruction. Reviewed, Interpreted and Dictated by Violeta Yanez MD Transcribed by Beverly Nichols Authenticated and [facility]
--- NOTE | 2024-05-31 12:15 | HMH.ITSTN ---
pt given oral contrast for CT. RN aware to call when patient finished drinking.
[2024-05-31 12:49] LABS: HCG,Quantitative < 2 mIU/ml (0-5.42)
[2024-05-31 13:25] VITALS: TEMP 37.1
[2024-05-31] MEDS: SODIUM CHLORIDE 0.9% 10ML SYR (RAD ONLY) 10 ML IV (14:39)
[2024-05-31] MEDS: IOPAMIDOL-370 (76%);100ML BOTTLE 75 ML IV (14:40)
[2024-05-31] MEDS: DIATRIZOATE MEG 66% & DIATRIZOATE NA 10% 30ML UDC 30 ML PO (14:40)
[2024-05-31 16:00] VITALS: BP 126/67; PULSE 82; RESP 17; TEMP 37.3; O2SAT 99
--- NOTE | 2024-05-31 16:48 | EXP.PN ---
Subjective *Date: 05/31/24 *Time: 16:48 Exam Data for Last 24 hours Vital signs and Labs for Last 24 Hours: Temp Pulse Resp BP Pulse Ox O2 Del Method 98.8 F 93 H 16 124/70 98 Room Air 05/31/24 13:25 05/31/24 08:00 05/31/24 08:00 05/31/24 08:00 05/31/24 08:00 05/31/24 15:00 Laboratory Results - last 24 hr 05/31/24 06:01: WBC 13.4 H, RBC 3.35 L, Hgb 10.2 L D, Hct 30.4 L, MCV 90.7, MCH 30.4, MCHC 33.6, RDW 12.2, Plt Count 261, MPV 9.0, Neut % (Auto) 84.7 H, Lymph % (Auto) 6.4 L, [place] % (Auto) 7.9, Eos % (Auto) 0.1, Baso % (Auto) 0.4, Neut # (Auto) 11.3 H, Lymph # (Auto) 0.9, [place] # (Auto) 1.1 H, Eos # (Auto) 0.0, Baso # (Auto) 0.1, Sodium 131 L, Potassium 4.1, Chloride 96 L, Carbon Dioxide 25, Anion Gap 14.1, BUN 8, Creatinine 0.90, Estimated Creat Clear 87, Estimated GFR 75, Est GFR ( Amer) 90 D, Glucose 84 D, Calcium 9.0, Magnesium 1.4 L, Total Bilirubin 0.4, AST 27, ALT 18, Alkaline Phosphatase 168 H, Total Protein 6.4, Albumin 3.4 L D, Globulin 3.0, Albumin/Globulin Ratio 1.1, HCG, Quant < 2 I & O for Last 24 hours: Intake & Output 05/28/24 05/29/24 05/30/24 05/31/24 23:59 23:59 23:59 23:59 Intake Total 1999 Output Total 0 / 0 0 / 0 Balance 0 / 750 1999 Weight 56.472 kg 59.058 kg Microbiology Reports for the Last 24 Hours: Microbiology 05/30/24 11:00 Blood Blood Culture - Preliminary NO GROWTH AFTER 24 HOURS 05/30/24 10:25 Blood Blood Culture - Preliminary NO GROWTH AFTER 24 HOURS Constitutional Constitutional: no acute distress *Routine HEENT Exam Head: Present normocephalic Eye: Present EOMI and PERRL ENT: Present mucous membranes moist *Routine Neck Exam Neck: Present supple; Absent lymphadenopathy *Routine Respiratory Exam Respiratory: Present CTA bilaterally *Routine Cardiovascular Exam Cardiovascular: Present RRR *Routine Abdominal Exam Abdominal: Present soft, normoactive bowel sounds and tenderness Comments: Right CVA tenderness, right lower abdominal tenderness to palpation without peritoneal signs. *Routine Extremities Exam Extremities: Absent cyanosis, clubbing or edema *Routine Skin Exam Skin: Present warm; Absent rash *Routine Neurological Exam Neurological: Present alert and oriented X3 Assessment and Plan *Assessment and plan (1) Pyelonephritis: Status: Acute Category: Medical Code(s): N12 - Tubulo-interstitial nephritis, not specified as acute or chronic Plan Dulce Torres is a 29-year-old female with a medical history significant for polycystic kidney disease who presents for worsening kidney pain. She was recently diagnosed with UTI and pyelonephritis at [facility] after abruptly returning from her [facility]. She was started on Bactrim and Levaquin, which she has been on for 4 days. Bactrim was discontinued due to bump in kidney function as advised per her credit resolution representative at . 2 days ago, patient states she started feeling better and followed up with her credit resolution representative. However, yesterday she began having fever up to 103 Fahrenheit and today she began having nausea/vomiting which prompted her to come to the ED at the advice of her credit resolution representative. CT abdomen/pelvis revealed findings suggestive of right pyelonephritis with a possible right renal cyst infection. WBC 12.4, with tachycardia. Case discussed with ED provider, and there was some initial discussion about transferring patient to where there is nephrology in the setting of possible renal cyst infection and probably cystic kidney disease. However, ultimately decision was made to admit patient for trial of IV antibiotics before considering transfer. #Sepsis #Pyelonephritis #Suspected infected renal cyst # History of polycystic kidney disease ? CT abdomen/pelvis revealed findings suggestive of right pyelonephritis with a possible right renal cyst infection. Initial WBC 12.4, with tachycardia. ? IV ceftriaxone day 2. Follow-up urine culture. ? WBC bumped slightly from 12.4-13.4 today. Tachycardia resolved. ? However, patient continues to have significant right-sided flank pain that is managed well with pain regimen. ? Given history of pelvic cystic kidney disease, pyelonephritis with possibly infected cyst I reached out to [facility] and patient's credit resolution representative and had an extensive conversation. They recommended continuing treating with IV antibiotics but they would be able to accept her as a transfer as we do not have nephrology here, however they do not have beds at this time. She will be placed on a wait list. ? Patient's OSH urine culture revealed E. coli, though sensitivities not available. Requesting records from [facility]. ? Hold home lisinopril at this time. ? Continue LR at 100 mL/h. ? Patient also endorses right lower abdominal pain and is concerned about appendicitis. Her abdomen is also bloated. Spoke with Dr. Muñiz who recommended CT abdomen/pelvis with oral contrast which did not indicate appendicitis. There is stool burden and patient is on MiraLAX for that. #GERD ? Continue home PPI. Full code DVT prophylaxis: Lovenox 40mg
--- NOTE | 2024-05-31 18:23 | PC.NURSE ---
pt a&ox4. abdomen firm and tender. pt given miralax per request. treated with dilaudid/norco several times this shift. tolerated small amounts of liquid diet well. no needs at this time. call light within reach.
[2024-05-31 20:00] VITALS: BP 158/87; PULSE 97; RESP 18; TEMP 36.9; O2SAT 98
[2024-05-31] MEDS: PANTOPRAZOLE 40MG TABLET 40 MG PO (20:02)
[2024-06-01] MEDS: HYDROCODONE/APAP 5/325 MG TABLET 1 TAB PO ×4 (00:36→12:47)
--- NOTE | 2024-06-01 00:38 | PC.NURSE ---
Kaley Arias RN took call from [facility] transfer, updated patient on vitals. No bed at this time.
[2024-06-01] MEDS: LACTATED RINGERS 1000ML 1,000 ML 100 ML IV ×2 (02:21→19:41)
[2024-06-01 03:34] VITALS: BP 114/68; PULSE 101; RESP 18; TEMP 37; O2SAT 100
[2024-06-01 04:00] VITALS: BMI 23.1
--- NOTE | 2024-06-01 06:09 | PC.NURSE ---
Pt. is alert and orientated x 4. Pt. on room air. C/o pain to right side abdominal pain that radiates to the flank area. Abd. soft, tender and midly distended. bowel sounds hpoactive. Pt. in IVF. taking oral pain meds [place] 1 tabs q 4 hours. Pt. consistanly needing pain meds q 4 hours. Pt. states she feels like she has fever at times, temp 99. No nausea or vomiting. called for update, Pt. on waiting list to transfer to . no beds available last night. VSS. Personal items and call [place] in reach.
[2024-06-01] MEDS: CEFTRIAXONE SODIUM 2 GM in 0.9 % SODIUM CHLORIDE 100 ML IV (06:38)
[2024-06-01] MEDS: SODIUM CHLORIDE 0.9% 10ML FLUSH SYRINGE 10 ML IV ×2 (06:45→07:14)
[2024-06-01 08:00] VITALS: BP 126/72; PULSE 112; RESP 18; TEMP 37.9; O2SAT 99
[2024-06-01 08:16] LABS: Basophils % 0.3 % (0.1-2.0); Eosinophils % 0.3 % (0.1-12.0); Hematocrit 31.5 % (37.0-47.0); Hemoglobin 10.6 g/dL (12.2-16.2); Lymphocytes # 0.9 K/mm3 (0.7-4.5); Lymphocytes % 7.6 % (10-50); Mean Corpuscular HGB Conc 33.7 g/dL (31.8-35.4); Mean Corpuscular Hemoglobin 30.1 pg (27.0-31.2); Mean Corpuscular Volume 89.5 fl (81-99); Mean Platelet Volume 8.8 fl (7.4-10.4); Monocytes # 0.6 K/mm3 (0.1-1.0); Monocytes % 5.1 % (1.7-9.3); Neutrophils # 10.1 K/mm3 (1.8-7.8); Neutrophils % 86.1 % (37.0-80.0); Platelet Count 283 K/mm3 (142-424); Red Blood Count 3.52 M/mm3 (4.20-5.40); Red Cell Distribution Width 12.2 % (11.5-17.5); White Blood Count 11.8 K/mm3 (4.8-10.8)
[2024-06-01] MEDS: POLYETHYLENE GLYCOL 3350 17 GM PACKET PO (08:20)
[2024-06-01] MEDS: ENOXAPARIN 40MG/0.4ML SYRINGE 40 MG SUBCUT (08:20)
[2024-06-01 08:32] LABS: Alanine Aminotransferase 29 U/L (12-78); Albumin Level 3.5 g/dl (3.5-5.0); Albumin/Globulin Ratio 1.1 (1.1-1.8); Alkaline Phosphatase 234 U/L (38-126); Anion Gap 14.1 mEq/L (5-15); Aspartate Amino Transferase 35 U/L (14-36); Bilirubin,Total 0.2 mg/dl (0.2-1.3); Blood Urea Nitrogen 7 mg/dl (7-17); Calcium 8.9 mg/dl (8.4-10.2); Carbon Dioxide 29 mmol/L (22.0-30.0); Chloride 92 mmol/L (98-107); Creatinine Clearance Estimated 94 mL/min (50-200); Estimated Glomerular Filt Rate 85 ml/min (>60); GFR (African American) 103 ML/MIN (>60); Globulin 3.2 g/dL (1.3-3.2); Glucose 100 mg/dl (74-100); Magnesium 1.6 mg/dl (1.6-2.3); Potassium 4.1 mmoL/L (3.5-5.1); Sodium 131 mmol/L (136-145); Total Protein,Serum 6.7 g/dl (6.3-8.2)
[2024-06-01] MEDS: MAGNESIUM SULFATE IN WATER 2 GM/50 ML PIGGYBACK IV ×2 (10:40→10:43)
[2024-06-01] MEDS: BISACODYL 5MG TABLET 10 MG PO (11:44)
[2024-06-01] MEDS: ONDANSETRON 4MG/2ML VIAL 4 MG IV (12:47)
[2024-06-01 16:00] VITALS: BP 113/74; PULSE 90; RESP 19; TEMP 36.9; O2SAT 99
--- NOTE | 2024-06-01 16:10 | EXP.PN ---
Subjective *Date: 06/01/24 *Time: 16:10 Interval history: Patient states she is slightly better today, though she did have a fever overnight and has tachycardia. Flank pain is improved, but continues to have constipation. Exam Data for Last 24 hours Vital signs and Labs for Last 24 Hours: Temp Pulse Resp BP Pulse Ox O2 Del Method 100.2 F H 112 H 18 126/72 99 Room Air 06/01/24 08:00 06/01/24 08:00 06/01/24 08:00 06/01/24 08:00 06/01/24 08:00 06/01/24 15:00 Laboratory Results - last 24 hr 06/01/24 07:30: WBC 11.8 H, RBC 3.52 L, Hgb 10.6 L, Hct 31.5 L, MCV 89.5, MCH 30.1, MCHC 33.7, RDW 12.2, Plt Count 283, MPV 8.8, Neut % (Auto) 86.1 H, Lymph % (Auto) 7.6 L, [place] % (Auto) 5.1, Eos % (Auto) 0.3, Baso % (Auto) 0.3, Neut # (Auto) 10.1 H, Lymph # (Auto) 0.9, [place] # (Auto) 0.6, Eos # (Auto) 0.0, Baso # (Auto) 0.0, Sodium 131 L, Potassium 4.1, Chloride 92 L, Carbon Dioxide 29, Anion Gap 14.1, BUN 7, Creatinine 0.80, Estimated Creat Clear 94, Estimated GFR 85, Est GFR ( Amer) 103, Glucose 100, Calcium 8.9, Magnesium 1.6 D, Total Bilirubin 0.2, AST 35 D, ALT 29 D, Alkaline Phosphatase 234 H, Total Protein 6.7, Albumin 3.5, Globulin 3.2, Albumin/Globulin Ratio 1.1 I & O for Last 24 hours: Intake & Output 05/29/24 05/30/24 05/31/24 06/01/24 23:59 23:59 23:59 23:59 Intake Total 2099 / 2099 350 / 350 Output Total 0 / 0 0 / 0 120 / 120 Balance 0 / 750 2099 / 2099 230 / 230 Weight 56.472 kg 59.058 kg 56.869 kg Microbiology Reports for the Last 24 Hours: Microbiology 05/30/24 11:00 Blood Blood Culture - Preliminary NO GROWTH AFTER 48 HOURS 05/30/24 10:25 Blood Blood Culture - Preliminary NO GROWTH AFTER 48 HOURS 05/31/24 04:28 Urine,Clean Catch Urine Culture - Final No growth. Constitutional Constitutional: no acute distress *Routine HEENT Exam Head: Present normocephalic Eye: Present EOMI and PERRL ENT: Present mucous membranes moist *Routine Neck Exam Neck: Present supple; Absent lymphadenopathy *Routine Respiratory Exam Respiratory: Present CTA bilaterally *Routine Cardiovascular Exam Cardiovascular: Present RRR *Routine Abdominal Exam Abdominal: Present soft, normoactive bowel sounds and tenderness Comments: Right CVA tenderness, right lower abdominal tenderness to palpation without peritoneal signs. *Routine Extremities Exam Extremities: Absent cyanosis, clubbing or edema *Routine Skin Exam Skin: Present warm; Absent rash *Routine Neurological Exam Neurological: Present alert and oriented X3 Assessment and Plan *Assessment and plan (1) Pyelonephritis: Status: Acute Category: Medical Code(s): N12 - Tubulo-interstitial nephritis, not specified as acute or chronic Plan Dulce Torres is a 29-year-old female with a medical history significant for polycystic kidney disease who presents for worsening kidney pain. She was recently diagnosed with UTI and pyelonephritis at [facility] after abruptly returning from her [facility]. She was started on Bactrim and Levaquin, which she has been on for 4 days. Bactrim was discontinued due to bump in kidney function as advised per her bariatric physician at . 2 days ago, patient states she started feeling better and followed up with her bariatric physician. However, yesterday she began having fever up to 103 Fahrenheit and today she began having nausea/vomiting which prompted her to come to the ED at the advice of her bariatric physician. CT abdomen/pelvis revealed findings suggestive of right pyelonephritis with a possible right renal cyst infection. WBC 12.4, with tachycardia. Case discussed with ED provider, and there was some initial discussion about transferring patient to where there is nephrology in the setting of possible renal cyst infection and probably cystic kidney disease. However, ultimately decision was made to admit patient for trial of IV antibiotics before considering transfer. #Sepsis #Pyelonephritis #Suspected infected renal cyst #Polycystic kidney disease ? CT abdomen/pelvis 05/30/2024 revealed findings suggestive of right pyelonephritis with a possible right renal cyst infection. Initial WBC 12.4, with tachycardia. ? IV ceftriaxone day 2. Follow-up urine culture. ? WBC improved to 11.8 today from 13.4, however had low-grade fever 100.2 with tachycardia. ? Flank pain seems to have improved slightly today. ? Given history of pelvic cystic kidney disease, pyelonephritis with possibly infected cyst I reached out to [facility] and patient's bariatric physician, Dr. Hill, and had an extensive conversation on 05/31/2024. They recommended continuing treating with IV antibiotics but they would be able to accept her as a transfer as we do not have nephrology here, however they do not have beds at this time. She will be placed on a wait list. ? Patient's OSH urine culture revealed E. coli, though sensitivities not available. Requesting records from [facility]. ? Hold home lisinopril at this time. ? Continue LR at 100 mL/h. ? Patient also endorses right lower abdominal pain and is concerned about appendicitis. Her abdomen is also bloated. Spoke with Dr. Muñiz who recommended CT abdomen/pelvis with oral contrast which did not indicate appendicitis. There is stool burden and patient is on MiraLAX for that. Started bisacodyl today. #GERD ? Continue home PPI. Full code DVT prophylaxis: Lovenox 40mg
[2024-06-01] MEDS: LEVOFLOXACIN/D5W 750 MG/150 ML 750 MG/150 ML PIGGYBACK 100 MG IV (18:26)
[2024-06-01] MEDS: ACETAMINOPHEN 325MG TAB 650 MG PO (19:38)
[2024-06-01] MEDS: PANTOPRAZOLE 40MG TABLET 40 MG PO (19:39)
[2024-06-01 20:00] VITALS: BP 111/63; PULSE 120; RESP 16; TEMP 39.4; O2SAT 97
[2024-06-01 21:00] VITALS: TEMP 38.2
[2024-06-02] MEDS: ACETAMINOPHEN 325MG TAB 650 MG PO (02:20)
--- NOTE | 2024-06-02 02:43 | CT_ITS ---
PROCEDURE INFORMATION: Exam: CT Abdomen And Pelvis Without Contrast Exam date and time: 06/02/2024 3:02 AM Age: 29 years old Clinical indication: Fever TECHNIQUE: Imaging protocol: Computed tomography of the abdomen and pelvis without contrast. Radiation optimization: All CT scans at this facility use at least one of these dose optimization techniques: automated exposure control; mA and/or kV adjustment per patient size (includes targeted exams where dose is matched to clinical indication); or iterative reconstruction. COMPARISON: CT ABDOMEN PELVIS W CON 05/31/2024 2:25 PM FINDINGS: Liver: Normal. No mass. Gallbladder and biliary ducts: Cholecystectomy. Pancreas: Normal. No ductal dilation. Spleen: Normal. No splenomegaly. Adrenal glands: Normal. No mass. Kidneys and ureters: Enlarged kidneys with too numerous to count lesions of various densities are again visualized consistent with known autosomal dominant polycystic kidney disease. There is some edema surrounding the right kidney. Stomach and bowel: Oral contrast was used for the examination in this has reached the sigmoid colon without evidence of obstruction. Appendix: No evidence of appendicitis. Intraperitoneal space: Unremarkable. No free air. No significant fluid collection. Vasculature: Unremarkable. No abdominal aortic aneurysm. Lymph nodes: Unremarkable. No enlarged lymph nodes. Urinary bladder: Unremarkable as visualized. Reproductive: Unremarkable as visualized. Bones/joints: Unremarkable. No acute fracture. Soft tissues: Unremarkable. IMPRESSION: 1. Stable right perinephric edema and prominence of the collecting system may represent underlying right-sided pyelonephritis/urinary tract infection. 2. Autosomal dominant polycystic kidney disease. 3. The remainder the examination is unchanged,
--- NOTE | 2024-06-02 04:29 | PC.NURSE ---
2000: Pt. spiked a temp 103. Medicated with Tylenol. Blood cultures drawn.
--- NOTE | 2024-06-02 04:31 | PC.NURSE ---
0220: Pt. spiked a temp again 102.5, medicated with Tylenol. CT abd/pelvis ordered.
--- NOTE | 2024-06-02 04:32 | PC.NURSE ---
0400. called and has a bed for this patient. She was on a wiating list. Reprt called to . Pt. to be transfer to via S ambulance.
--- NOTE | 2024-06-02 07:45 | P.DS_ITS ---
General Admission date:: 05/30/24 HPI HPI HPI: Dulce Torres is a 29-year-old female with a medical history significant for polycystic kidney disease who presents for worsening kidney pain. She was recently diagnosed with UTI and pyelonephritis at [facility] after abruptly returning from her [place]. She was started on Bactrim and Levaquin, which she has been on for 4 days. Bactrim was discontinued due to bump in ki dney function as advised per her industrial relations representative at . 2 days ago, patient states she started feeling better and followed up with her industrial relations representative. However, yesterday she began having fever up to 103 Fahrenheit and today she began having nausea/vomiting which prompted her to come to the ED at the advice of her industrial relations representative. CT abdomen/pelvis revealed findings suggestive of right pyelonephritis with a possible right renal cyst infection. WBC 12.4, with tachycardia. Case discussed with ED provider, and there was some initial discussion about transferring patient to where there is nephrology in the setting of possible renal cyst infection and probably cystic kidney disease. However, ultimately decision was made to admit patient for trial of IV antibiotics before considering transfer. Hospital Course Hospital Course Hospital Course: Dulce Torres is a 29-year-old female with a medical history significant for polycystic kidney disease who presents for worsening kidney pain. She was recently diagnosed with UTI and pyelonephritis at [facility] after abruptly returning from her [place]. She was started on Bactrim and Levaquin, which she has been on for 4 days. Bactrim was discontinued due to bump in kidney function as advised per her industrial relations representative at . 2 days ago, patient states she started feeling better and followed up with her industrial relations representative. However, yesterday she began having fever up to 103 Fahrenheit and today she began having nausea/vomiting which prompted her to come to the ED at the advice of her industrial relations representative. CT abdomen/pelvis revealed findings suggestive of right pyelonephritis with a possible right renal cyst infection. WBC 12.4, with tac hycardia. Case discussed with ED provider, and there was some initial discussion about transferring patient to where there is nephrology in the setting of possible renal cyst infection and probably cystic kidney disease. However, ultimately decision was made to admit patient for trial of IV antibiotics before considering transfer. #Sepsis #Pyelonephritis #Suspected infected renal cyst #Polycystic kidney disease ? CT abdomen/pelvis 05/30/2024 revealed findings suggestive of right pyelonephritis with a possible right renal cyst infection. Initial WBC 12.4, with tachycardia. ? IV ceftriaxone day 3. Follow-up urine culture. Patient's OSH urine culture revealed E. coli, though sensitivities not available. Requesting records from [facility]. ? WBC improved to 11.8 today from 13.4, however had low-grade fever 100.8 with tachycardia. ? Flank pain seems to have improved slightly today. ? Given history of pelvic cystic kidney disease, pyelonephritis with possibly infected cyst I reached out to and patient's industrial relations representative, Dr. Hill, and had an extensive conversation on 05/31/2024. They recommended continuing treating with IV antibiotics but they would be able to accept her as a transfer as we do not have nephrology here. ? Hold home lisinopril at this time. ? Continue LR at 100 mL/h. ? Patient also endorses right lower abdominal pain and is concerned about appendicitis. Her abdomen is also bloated. Spoke with Dr. Muñiz who recommended CT abdomen/pelvis with oral contrast which did not indicate appendicitis. There is stool burden and patient is on MiraLAX for that. Started bisacodyl. - Patient graciously accepted by and will be transferred there this morning. #GERD ? Continue home PPI. Full code DVT prophylaxis: Lovenox 40mg Exam Data for Last 24 hours Vital signs and Labs for Last 24 Hours: Temp Pulse Resp BP Pulse Ox O2 Del Method 100.8 F H 120 H 16 111/63 97 Room Air 06/01/24 21:00 06/01/24 20:00 06/01/24 20:00 06/01/24 20:00 06/01/24 20:00 06/02/24 02:52 Laboratory Results - last 24 hr 06/01/24 07:30: WBC 11.8 H, RBC 3.52 L, Hgb 10.6 L, Hct 31.5 L, MCV 89.5, MCH 30.1, MCHC 33.7, RDW 12.2, Plt Count 283, MPV 8.8, Neut % (Auto) 86.1 H, Lymph % (Auto) 7.6 L, [place] % (Auto) 5.1, Eos % (Auto) 0.3, Baso % (Auto) 0.3, Neut # (Auto) 10.1 H, Lymph # (Auto) 0.9, [place] # (Auto) 0.6, Eos # (Auto) 0.0, Baso # (Auto) 0.0, Sodium 131 L, Potassium 4.1, Chloride 92 L, Carbon Dioxide 29, Anion Gap 14.1, BUN 7, Creatinine 0.80, Estimated Creat Clear 94, Estimated GFR 85, Est GFR ( Amer) 103, Glucose 100, Calcium 8.9, Magnesium 1.6 D, Total Bilirubin 0.2, AST 35 D, ALT 29 D, Alkaline Phosphatase 234 H, Total Protein 6.7, Albumin 3.5, Globulin 3.2, Albumin/Globulin Ratio 1.1 I & O for Last 24 hours: Intake & Output 05/30/24 05/31/24 06/01/24 06/02/24 23:59 23:59 23:59 23:59 Intake Total 2099 590 / 590 Output Total 0 / 0 0 / 0 120 / 120 0 / 0 Balance 0 / 750 2099 470 / 470 0 / 0 Weight 56.472 kg 59.058 kg 56.869 kg Microbiology Reports for the Last 24 Hours: Microbiology 05/30/24 11:00 Blood Blood Culture - Preliminary NO GROWTH AFTER 48 HOURS 05/30/24 10:25 Blood Blood Culture - Preliminary NO GROWTH AFTER 48 HOURS 05/31/24 04:28 Urine,Clean Catch Urine Culture - Final No growth. Constitutional Constitutional: no acute distress *Routine HEENT Exam Head: Present normocephalic Eye: Present EOMI and PERRL ENT: Present mucous membranes moist *Routine Neck Exam Neck: Present supple; Absent lymphadenopathy *Routine Respiratory Exam Respiratory: Present CTA bilaterally *Routine Cardiovascular Exam Cardiovascular: Present RRR *Routine Abdominal Exam Abdominal: Present soft, normoactive bowel sounds and tenderness Comments: Right CVA tenderness, right lower abdominal tenderness to palpation without peritoneal signs. *Routine Extremities Exam Extremities: Absent cyanosis, clubbing or edema *Routine Skin Exam Skin: Present warm; Absent rash *Routine Neurological Exam Neurological: Present alert and oriented X3 Results Data Completed and Pending Labs on day of discharge: Labs from last 24 hours 06/01/24 07:30 WBC 11.8 H RBC 3.52 L Hgb 10.6 L Hct 31.5 L MCV 89.5 MCH 30.1 MCHC 33.7 RDW 12.2 Plt Count 283 MPV 8.8 Neut % (Auto) 86.1 H Lymph % (Auto) 7.6 L [place] % (Auto) 5.1 Eos % (Auto) 0.3 Baso % (Auto) 0.3 Neut # (Auto) 10.1 H Lymph # (Auto) 0.9 [place] # (Auto) 0.6 Eos # (Auto) 0.0 Baso # (Auto) 0.0 Sodium 131 L Potassium 4.1 Chloride 92 L Carbon Dioxide 29 Anion Gap 14.1 BUN 7 Creatinine 0.80 Estimated Creat Clear 94 Estimated GFR 85 Est GFR ( Amer) 103 Glucose 100 Calcium 8.9 Magnesium 1.6 D Total Bilirubin 0.2 AST 35 D ALT 29 D Alkaline Phosphatase 234 H Total Protein 6.7 Albumin 3.5 Globulin 3.2 Albumin/Globulin Ratio 1.1 Preliminary micro results at discharge 05/30/24 11:00 Blood Culture - Preliminary Blood NO GROWTH AFTER 48 HOURS 05/30/24 10:25 Blood Culture - Preliminary Blood NO GROWTH AFTER 48 HOURS DS: Diagnosis Discharge Diagnosis (1) Pyelonephritis: Status: Acute Code(s): N12 - Tubulo-interstitial nephritis, not specified as acute or chronic Meds Home Medications and Allergies Home Medications ?Medication ?Instructions ?Recorded ?Confirmed ?Type norethindrone 1 mg-ethinyl 1 tab PO DIRECTED 05/30/24 05/30/24 History estradiol 20 mcg (21)-iron 75 mg (7) tablet omeprazole 20 mg capsule,delayed 20 mg PO DAILY 05/30/24 05/30/24 History release New Prescriptions to Start Prescriptions: Allergies Allergy/AdvReac Type Severity Reaction Status Date / Time sulfamethoxazole (From Allergy Unknown I-RASH Verified 05/30/24 11:00 BACTRIM) trimethoprim (From BACTRIM) Allergy Unknown I-RASH Verified 05/30/24 11:00 Discharge Plan Disposition Patient Disposition: Xfer Short-Term Hosp Condition: Fair Discharge Order Discharge Orders: Discharge Order (Routine); Ordered 06/02/24 Ordered By: Jesus Marks Follow up Plan Prescriptions/Medication Reconciliation: Continued norethindrone-e.estradiol-iron 1 mg-20 mcg (21)/75 mg (7) tablet 1 tab PO DIRECTED omeprazole 20 mg capsule,delayed release(DR/EC) 20 mg PO DAILY Discontinued ibuprofen 800 mg tablet 800 mg PO Q8HP PRN (Reason: Mild Pain (Scale Score 1-4)) Patient Comments: TAKE 1 TABLET BY MOUTH EVERY 8 HOURS NEEDED FOR PAIN sulfamethoxazole-trimethoprim 800-160 mg tablet 1 tab PO BID Patient Comments: TAKE 1 TABLET BY MOUTH TWICE A DAY lisinopril 10 mg tablet 10 mg PO DAILY levofloxacin 500 mg tablet 500 mg PO DAILY Patient Comments: TAKE 1 TABLET BY MOUTH EVERY DAY FOR 10 DAYS Problem Reconciliation Problems Reviewed?: Yes Patient Discharge Instructions Stand Alone Forms: Transfer Record Patient Instructions: DI for Kidney Infection Print Language: Uz[place] Providers Primary Care Provider: Provider,Referral Admit Provider: Neymar Jacobson Attending Provider: Neymar Jacobson
== END 2024-06-02 04:48 | disposition short-term general hospital (02) | DRG 690 ==
LOC: ER 13:44 → 2ND 13:56
PROVIDERS: Admitting Provider Student in an Organized Health Care Education/Training Program; Emergency Provider Student in an Organized Health Care Education/Training Program; Visit Provider Student in an Organized Health Care Education/Training Program
DX: N12 Tubulo-interstitial nephritis, not specified as acute or chronic (principal); K21.9 Gastro-esophageal reflux disease without esophagitis; N10 Acute pyelonephritis; I10 Essential (primary) hypertension; Z79.899 Other long term (current) drug therapy; N28.1 Cyst of kidney, acquired
CPT/HCPCS: 36415; 74176; 74177; 80053; 81001; 81025; 83735; 84702; 84703; 85025; 86803; 87040; 87086; 87389; 99285; J0696; J1171; J1650; J1956; J2405; J3475; J7120; Q9963; Q9967

== ENCOUNTER 2024-06-07 13:01 | Outpatient (CLI) | payer OTHER, SELFPAY ==
--- NOTE | 2024-06-07 14:43 | PC.NURSE ---
06/07/24 1400- attempted midline placement. unable to thread and decision made to abort procedure.
== END 2024-06-07 23:59 | disposition home or self-care (01) ==
LOC: INF 13:03
PROVIDERS: Visit Provider Internal Medicine Infectious Disease
DX: Q61.2 Polycystic kidney, adult type (principal)
CPT/HCPCS: C1751

== ENCOUNTER 2024-06-09 18:37 | Emergency (ER) | payer OTHER, SELFPAY ==
--- NOTE | 2024-06-09 19:00 | ED_ITS ---
Discharge Plan Prescriptions Prescriptions: No Action norethindrone-e.estradiol-iron 1 mg-20 mcg (21)/75 mg (7) tablet 1 tab PO DIRECTED omeprazole 20 mg capsule,delayed release(DR/EC) 20 mg PO DAILY Referrals Follow up/Referrals: Provider,Referral, MD [Primary Care Provider] - See instructions Print Language Print Language: Bulgarian Discharge ED Provider: Gordon Acevedo General Adult HPI General Stated complaint: needs meds administered-IV Time Seen by Provider: 06/09/24 19:00 History of Present Illness HPI narrative: Please note that above description of symptoms, in this electronic medical record under categorization of recalled from ER triage doctor by RN are reflective of an initial nursing assessment, however, is not reflective of my full history and physical exam that was personally taken and clarified. Consequentially, this preceding description of symptoms, which may include the patient's categorized chief complaint in the EMR, do not reflect my personal clinical impression, and the ultimate description of history of present illness and patient stated complaints should be deferred to this section of the note. Unless stated otherwise or congruent with this section of the note, additional signs, symptoms, or incongruence should be interpreted as inaccurate with my clinical impression. Related Data Home Medications ?Medication ?Instructions ?Recorded ?Confirmed norethindrone 1 mg-ethinyl 1 tab PO DIRECTED 05/30/24 05/30/24 estradiol 20 mcg (21)-iron 75 mg (7) tablet omeprazole 20 mg capsule,delayed 20 mg PO DAILY 05/30/24 05/30/24 release Allergies Allergy/AdvReac Type Severity Reaction Status Date / Time sulfamethoxazole (From Allergy Unknown I-RASH Verified 05/30/24 11:00 BACTRIM) trimethoprim (From BACTRIM) Allergy Unknown I-RASH Verified 05/30/24 11:00 [facility] Disclaimer: The information contained in this section may have been updated after the patient was seen, as this information can be updated by other users. Medical History (Updated 06/06/24 @ 00:00 by Bj Bond) HTN (hypertension) GERD (gastroesophageal reflux disease) Polycystic kidney disease Surgical History (Updated 05/30/24 @ 17:47 by Dinorah Patino, WENDY) Hx laparoscopic cholecystectomy Social History (Updated 05/30/24 @ 16:29 by Dinorah Patino RN) Smoking Status: Never smoker alcohol intake: never current occupational status: employed Travel in the last 8 weeks: Outside the continental [place] Have you lived/traveled outside US in past 30 days?: No Contact w/someone who lives/traveled outside US past 30 days?: No Exposure to someone with infectious disease in past 14 days?: No Do you have a fever (greater than 100.4 F or 38 C)?: No Have you tested positive for COVID-19: No Exposed to someone with COVID-19 in past 14 days?: No Do you have a sore throat?: No Do you have a cough?: No Do you have any weakness?: No Do you have any diarrhea?: No Are you experiencing any unusual bleeding?: No Do you have any muscle aches/pain?: No Do you have any abdominal pain?: No Are you experiencing loss of taste or smell?: No Other Medical History Have you received the Flu Vaccine for this season: No Have you received the Pneumonia Vaccine: No ROS Obtained: Yes other As per HPI Physical Exam General General appearance: alert and in no apparent distress Head Head exam: atraumatic and normocephalic Eye Eye exam: Present normal appearance Neck Neck exam: Present normal inspection Chest Chest inspection: Present normal inspection and symmetric chest wall rise Respiratory Respiratory exam: Present normal lung sounds bilaterally; Absent respiratory distress Cardiovascular Cardiovascular exam: Present regular rate and normal rhythm Abdominal Exam Abdominal exam: Present soft Neurological Exam Neurological exam: Present alert and oriented X3 Psychiatric Psychiatric exam: Present normal affect and normal mood Skin Skin exam: Present warm and dry Medical Decision Making Medical Records Medical records reviewed: Yes I reviewed the patient's medical records. Screening: Per USPSTF and CDC recommendations, given the prevalence of disease in our region, it is our hospital?s policy to screen for HIV and viral Hepatitis for all patients aged 18 and over and those with ongoing risk factors. Erd Inquiry Pt receiving controlled substance: No Medical Decision Narrative: Patient with history and exam per above presenting for evaluation of Diagnoses considered include ED workup and treatment included: Labs were independently interpreted by me, significant for Imaging was independently visualized and interpreted by me, significant for Please refer to radiology report for full details. My clinical impression at this time is most consistent with I discussed my clinical impression with patient and answered all questions. At this time, the evidence for any other entities in the differential is insufficient to warrant any further testing or ED observation. This was explained to the patient. The patient was advised that persistent or worsening symptoms require further evaluation. Critical Care Critical Care Time Critical Care Time: No
[2024-06-09 19:17] VITALS: BP 146/88; PULSE 101; RESP 20; TEMP 37.1; O2SAT 99; BMI 21.0
--- NOTE | 2024-06-09 19:20 | PC.NURSE ---
Pt awake alert and oriented, skin pink, warm and dry. Speech clear and appropriate. Midline in place in right upper arm Pt states line will not flush and is painful. States they tried to replace it in the infusion center with no success. Report given to Rita NGUYEN
--- NOTE | 2024-06-09 19:33 | PC.NURSE ---
Midline from right upper arm removed per policy Dressing applied. Catheter sent to lab for culture. Bleeding controlled. Pt tolerated procedure well.
--- NOTE | 2024-06-09 19:58 | ED_ITS ---
Discharge Plan Disposition Patient Disposition: Home, Self-Care Condition: Good Prescriptions Prescriptions: No Action norethindrone-e.estradiol-iron 1 mg-20 mcg (21)/75 mg (7) tablet 1 tab PO DIRECTED omeprazole 20 mg capsule,delayed release(DR/EC) 20 mg PO DAILY Referrals Follow up/Referrals: Provider,Referral, [Primary Care Provider] - See instructions Activity Restrictions/Add. Instructions Additional Instructions/Restrictions: Increase fluids and rest. If any problems or concerns return to [facility] or see your primary care Clinical Impressions Clinical Impression: Pyelonephritis Print Language Print Language: Indonesian Discharge ED Provider: Gordon Acevedo Adult HPI <Dian Wilks (ED), OCC MED PHYSICIAN - Last Filed: 06/09/24 20:05> General Chief complaint: PAIN Stated complaint: needs meds administered-IV Time Seen by Provider: 06/09/24 19:00 Mode of Arrival: Ambulatory Source of Information: Patient Limitations: No Limitations Description of Symptoms (Recalled from ER Triage Doc. by RN): Pt has UTI pylonephritis with polycystic kidney disease and has been doing home antibiotics Today Mid line will not work. History of Present Illness HPI narrative: 29-year-old female presents to the ED today for her midline malfunctioning. She has pyelonephritis and has been taking antibiotics daily and it stopped working on her. 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 Related Data Home Medications ?Medication ?Instructions ?Recorded ?Confirmed norethindrone 1 mg-ethinyl 1 tab PO DIRECTED 05/30/24 05/30/24 estradiol 20 mcg (21)-iron 75 mg (7) tablet omeprazole 20 mg capsule,delayed 20 mg PO DAILY 05/30/24 05/30/24 release Allergies Allergy/AdvReac Type Severity Reaction Status Date / Time sulfamethoxazole (From Allergy Unknown I-RASH Verified 05/30/24 11:00 BACTRIM) trimethoprim (From BACTRIM) Allergy Unknown I-RASH Verified 05/30/24 11:00 PFSH <Dian Wilks (ED), OCC MED PHYSICIAN - Last Filed: 06/09/24 20:05> [facility] Disclaimer: The information contained in this section may have been updated after the patient was seen, as this information can be updated by other users. Medical History (Updated 06/11/24 @ 00:00 by Background Daemon) HTN (hypertension) GERD (gastroesophageal reflux disease) Polycystic kidney disease Surgical History (Updated 05/30/24 @ 17:47 by Dinorah Patino, RN) Hx laparoscopic cholecystectomy Social History (Updated 05/30/24 @ 16:29 by Dinorah Patino, RN) Smoking Status: Never smoker alcohol intake: never current occupational status: employed Travel in the last 8 weeks: Outside the [employer] [facility] Have you lived/traveled outside US in past 30 days?: No Contact w/someone who lives/traveled outside US past 30 days?: No Exposure to someone with infectious disease in past 14 days?: No Do you have a fever (greater than 100.4 F or 38 C)?: No Have you tested positive for COVID-19: No Exposed to someone with COVID-19 in past 14 days?: No Do you have a sore throat?: No Do you have a cough?: No Do you have any weakness?: No Do you have any diarrhea?: No Are you experiencing any unusual bleeding?: No Do you have any muscle aches/pain?: No Do you have any abdominal pain?: No Are you experiencing loss of taste or smell?: No Other Medical History Have you received the Flu Vaccine for this season: No Have you received the Pneumonia Vaccine: No <Dian Wilks (ED), OCC MED PHYSICIAN - Last Filed: 06/09/24 20:05> ROS Obtained: Yes Systems reviewed as appropriate & no additional complaints except as documented Constitutional Constitutional: Reports as per HPI Physical Exam <Dian Wilks (ED), OCC MED PHYSICIAN - Last Filed: 06/09/24 20:05> General General appearance: alert and in no apparent distress Head Head exam: atraumatic and normocephalic Eye Eye exam: Present PERRL and EOMI ENT ENT exam: Present normal oropharynx and mucous membranes moist Neck Neck exam: Present full ROM and trachea midline Respiratory Respiratory exam: Present normal lung sounds bilaterally Cardiovascular Cardiovascular exam: Present regular rate, normal rhythm, normal heart sounds, +S1 and +S2 Extremities Exam Extremities exam: Present full ROM Neurological Exam Neurological exam: Present alert and oriented X3 Skin Skin exam: Present warm, dry and intact Medical Decision Making <Dian Wilks (ED), OCC MED PHYSICIAN - Last Filed: 06/09/24 20:05> Medical Records Screening: Per USPSTF and CDC recommendations, given the prevalence of disease in our region, it is our hospital?s policy to screen for HIV and viral Hepatitis for all patients aged 18 and over and those with ongoing risk factors. Red Inquiry Pt receiving controlled substance: No Red was queried for this patient: No Vital Signs: 06/09/24 19:17 06/09/24 20:00 06/09/24 20:26 Temperature 98.8 F 98.2 F Temperature Source Oral Oral Pulse Rate 77 87 Pulse Rate [Right Brachial] 101 H Respiratory Rate 20 16 Blood Pressure 108/73 L 108/73 L Blood Pressure [Right Arm] 146/88 H Blood Pressure Mean [Right Arm] 107 Blood Pressure Source Automatic Cuff Blood Pressure Source [Right Arm] Automatic Cuff Blood Pressure Position Sitting Blood Pressure Position [Right Arm] Sitting 02 Sat by Pulse Oximetry 99 97 Oxygen Delivery Method Room Air Room Air Lab Data Lab Results 06/09/24 19:10: WBC 7.4, RBC 3.62 L, Hgb 10.9 L, Hct 33.4 L, MCV 92.3, MCH 30.1, MCHC 32.6, RDW 12.8, Plt Count 589 H, MPV 8.6, Neut % (Auto) 64.7, Lymph % (Auto) 24.7, Howell % (Auto) 8.0, Eos % (Auto) 1.1, Baso % (Auto) 0.8, Neut # (Auto) 4.8, Lymph # (Auto) 1.8, Howell # (Auto) 0.6, Eos # (Auto) 0.1, Baso # (Auto) 0.1, Sodium 138, Potassium 3.9, Chloride 98, Carbon Dioxide 29, Anion Gap 14.9, BUN 18 H, Creatinine 1.30 H, Estimated Creat Clear 53, Estimated GFR 49 L, Est GFR ( Amer) 59, Glucose 95, Calcium 9.7, Total Bilirubin 0.1 L, AST 39 H, ALT 41, Alkaline Phosphatase 146 H, Total Protein 8.1, Albumin 4.4, G lobulin 3.7 H, Albumin/Globulin Ratio 1.2, Lipase 1362 H, HCV Ab DONTRELL w/Rflx PCR Qn Negative, HIV Ag/Ab Combo Qual Negative 06/09/24 19:10 06/09/24 19:10 Orders (Tests/Meds): ORDERS Category Date Time Status CBC [Complete Blood Count Auto Diff] Stat Lab 06/09/24 19:10 Completed Comprehensive Metabolic Panel Stat Lab 06/09/24 19:10 Completed HIV Combo Routine Lab 06/09/24 19:10 Completed Hepatitis C Ab Qual. W/ RFX Routine Lab 06/09/24 19:10 Completed Lipase Stat Lab 06/09/24 19:10 Completed Blood Culture Stat Micro 06/09/24 19:10 Completed Medical Decision Narrative: Insert review patient is a 29-year-old female presenting to the emergency department for evaluation of her midline malfunctioning. She needs her IV antibiotics. Patient is hemodynamically stable and nontoxic-appearing upon arrival, afebrile. Differential diagnosis includes pyelonephritis. Workup will be conducted with hematologic labs. Initial inventions include patient's antibiotics that she brought from home. Patient will be discharged once her antibiotics are finished. Patient went to [place] and came back very ill and had at the midline placed for treatment <Gordon Acevedo MD - Last Filed: 06/17/24 00:43> Vital Signs: 06/09/24 19:17 06/09/24 20:00 06/09/24 20:26 Temperature 98.8 F 98.2 F Temperature Source Oral Oral Pulse Rate 77 87 Pulse Rate [Right Brachial] 101 H Respiratory Rate 20 16 Blood Pressure 108/73 L 108/73 L Blood Pressure [Right Arm] 146/88 H Blood Pressure Mean [Right Arm] 107 Blood Pressure Source Automatic Cuff Blood Pressure Source [Right Arm] Automatic Cuff Blood Pressure Position Sitting Blood Pressure Position [Right Arm] Sitting 02 Sat by Pulse Oximetry 99 97 Oxygen Delivery Method Room Air Room Air Lab Data Lab Results 06/09/24 19:10: WBC 7.4, RBC 3.62 L, Hgb 10.9 L, Hct 33.4 L, MCV 92.3, MCH 30.1, MCHC 32.6, RDW 12.8, Plt Count 589 H, MPV 8.6, Neut % (Auto) 64.7, Lymph % (Auto) 24.7, Howell % (Auto) 8.0, Eos % (Auto) 1.1, Baso % (Auto) 0.8, Neut # (Auto) 4.8, Lymph # (Auto) 1.8, Howell # (Auto) 0.6, Eos # (Auto) 0.1, Baso # (Auto) 0.1, Sodium 138, Potassium 3.9, Chloride 98, Carbon Dioxide 29, Anion Gap 14.9, BUN 18 H, Creatinine 1.30 H, Estimated Creat Clear 53, Estimated GFR 49 L, Est GFR ( Amer) 59, Glucose 95, Calcium 9.7, Total Bilirubin 0.1 L, AST 39 H, ALT 41, Alkaline Phosphatase 146 H, Total Protein 8.1, Albumin 4.4, G lobulin 3.7 H, Albumin/Globulin Ratio 1.2, Lipase 1362 H, HCV Ab DONTRELL w/Rflx PCR Qn Negative, HIV Ag/Ab Combo Qual Negative Orders (Tests/Meds): ORDERS Category Date Time Status CBC [Complete Blood Count Auto Diff] Stat Lab 06/09/24 19:10 Completed Comprehensive Metabolic Panel Stat Lab 06/09/24 19:10 Completed HIV Combo Routine Lab 06/09/24 19:10 Completed Hepatitis C Ab Qual. W/ RFX Routine Lab 06/09/24 19:10 Completed Lipase Stat Lab 06/09/24 19:10 Completed Blood Culture Stat Micro 06/09/24 19:10 Completed Medical Decision Narrative: Insert review patient is a 29-year-old female presenting to the emergency department for evaluation of her midline malfunctioning. She needs her IV antibiotics. Patient is hemodynamically stable and nontoxic-appearing upon arrival, afebrile. Differential diagnosis includes pyelonephritis. Workup will be conducted with hematologic labs. Initial inventions include patient's antibiotics that she brought from home. Patient will be discharged once her antibiotics are finished. Patient went to [place] and came back very ill and had at the midline placed for treatment I was consulted by the MARY, and we discussed the complexity of the problems being addressI approved the treatment and management plan for this patient?s care in the Emergency Department, thus performing a substantive portion of the medical decision making.Signed, Gordon Acevedo MD MBA Critical Care <Dian Wilks (ED), OCC MED PHYSICIAN - Last Filed: 06/09/24 20:05> Critical Care Time Critical Care Time: No
[2024-06-09 20:00] VITALS: BP 108/73; PULSE 77; O2SAT 97
[2024-06-09 20:06] LABS: Basophils # 0.1 K/mm3 (0-0.2); Basophils % 0.8 % (0.1-2.0); Eosinophils # 0.1 K/mm3 (0.0-0.4); Eosinophils % 1.1 % (0.1-12.0); Hematocrit 33.4 % (37.0-47.0); Hemoglobin 10.9 g/dL (12.2-16.2); Lymphocytes # 1.8 K/mm3 (0.7-4.5); Lymphocytes % 24.7 % (10-50); Mean Corpuscular HGB Conc 32.6 g/dL (31.8-35.4); Mean Corpuscular Hemoglobin 30.1 pg (27.0-31.2); Mean Corpuscular Volume 92.3 fl (81-99); Mean Platelet Volume 8.6 fl (7.4-10.4); Monocytes # 0.6 K/mm3 (0.1-1.0); Neutrophils # 4.8 K/mm3 (1.8-7.8); Neutrophils % 64.7 % (37.0-80.0); Platelet Count 589 K/mm3 (142-424); Red Blood Count 3.62 M/mm3 (4.20-5.40); Red Cell Distribution Width 12.8 % (11.5-17.5); White Blood Count 7.4 K/mm3 (4.8-10.8)
[2024-06-09 20:07] LABS: Albumin Level 4.4 g/dl (3.5-5.0); Chloride 98 mmol/L (98-107); Potassium 3.9 mmoL/L (3.5-5.1); Sodium 138 mmol/L (136-145)
[2024-06-09 20:09] LABS: Alanine Aminotransferase 41 U/L (12-78); Aspartate Amino Transferase 39 U/L (14-36); Blood Urea Nitrogen 18 mg/dl (7-17); Creatinine Clearance Estimated 53 mL/min (50-200); Estimated Glomerular Filt Rate 49 ml/min (>60); GFR (African American) 59 ML/MIN (>60)
[2024-06-09 20:10] LABS: Albumin/Globulin Ratio 1.2 (1.1-1.8); Alkaline Phosphatase 146 U/L (38-126); Anion Gap 14.9 mEq/L (5-15); Calcium 9.7 mg/dl (8.4-10.2); Carbon Dioxide 29 mmol/L (22.0-30.0); Globulin 3.7 g/dL (1.3-3.2); Glucose 95 mg/dl (74-100); Total Protein,Serum 8.1 g/dl (6.3-8.2)
[2024-06-09 20:11] LABS: Bilirubin,Total 0.1 mg/dl (0.2-1.3)
[2024-06-09 20:12] LABS: Lipase 1362 U/L (23-300)
--- NOTE | 2024-06-09 20:24 | PC.NURSE ---
Lab results critical called to the ED These results do not seem consistant with patient's condition. Lab tests repeated in case lab entered them on the wrong client
[2024-06-09 20:26] VITALS: BP 108/73; PULSE 87; RESP 16; TEMP 36.8; O2SAT 98
--- NOTE | 2024-06-09 20:27 | PC.NURSE ---
Pt discharge with her peripheral IV until Mid line can be reestablished. Pt aware of how to care for line. IV infusing without difficulty Flushes well, no redness or edema noted.
[2024-06-09 20:29] LABS: HIV Combo NEGATIVE (Negative)
[2024-06-09 20:37] LABS: Hepatitis C Ab Qual. W/ RFX NEGATIVE (Negative)
== END 2024-06-09 20:31 | disposition home or self-care (01) ==
PROVIDERS: Nurse Practitioner; Emergency Provider Emergency Medicine
DX: T82.594A Other mechanical complication of infusion catheter, initial encounter (principal); N12 Tubulo-interstitial nephritis, not specified as acute or chronic
CPT/HCPCS: 80053; 83690; 85025; 86803; 87040; 87389; 99283

== ENCOUNTER 2024-06-11 13:02 | Outpatient (CLI) | payer OTHER, SELFPAY ==
[2024-06-11 13:32] LABS: Basophils % 0.7 % (0.1-2.0); Eosinophils # 0.1 K/mm3 (0.0-0.4); Eosinophils % 1.2 % (0.1-12.0); Hematocrit 29.7 % (37.0-47.0); Hemoglobin 9.7 g/dL (12.2-16.2); Lymphocytes # 1.8 K/mm3 (0.7-4.5); Mean Corpuscular HGB Conc 32.7 g/dL (31.8-35.4); Mean Corpuscular Hemoglobin 30.3 pg (27.0-31.2); Mean Corpuscular Volume 92.8 fl (81-99); Mean Platelet Volume 8.4 fl (7.4-10.4); Monocytes # 0.4 K/mm3 (0.1-1.0); Neutrophils # 3.6 K/mm3 (1.8-7.8); Neutrophils % 60.4 % (37.0-80.0); Platelet Count 463 K/mm3 (142-424); Red Cell Distribution Width 12.9 % (11.5-17.5)
[2024-06-11 13:56] LABS: Alanine Aminotransferase 31 U/L (12-78); Albumin Level 3.8 g/dl (3.5-5.0); Alkaline Phosphatase 114 U/L (38-126); Aspartate Amino Transferase 31 U/L (14-36); Estimated Glomerular Filt Rate 75 ml/min (>60); GFR (African American) 90 ML/MIN (>60); Total Protein,Serum 6.6 g/dl (6.3-8.2)
[2024-06-11 14:02] LABS: Bilirubin,Total < 0.1 mg/dl (0.2-1.3); C-Reactive Protein 8.1 mg/L (0-4)
[2024-06-11 14:10] LABS: Bilirubin,Direct 0.1 mg/dl (0.0-0.4); Bilirubin,Indirect 0.1 mg/dL (0.0-0.9); Blood Urea Nitrogen 19 mg/dl (7-17)
== END 2024-06-11 23:59 | disposition home or self-care (01) ==
LOC: LAB 13:04
PROVIDERS: PCP Internal Medicine; Visit Provider Internal Medicine
DX: N12 Tubulo-interstitial nephritis, not specified as acute or chronic (principal)
CPT/HCPCS: 36415; 80076; 82565; 84520; 85025; 86140

== ENCOUNTER 2024-06-27 13:58 | Outpatient (CLI) | payer OTHER, SELFPAY ==
[2024-06-27 12:11] LABS: Microscopic, Urine URINE MICROSCOPIC (MICROSCOPIC)
[2024-06-27 13:28] LABS: Appearance,Urine CLEAR (Clear); Bilirubin,Urine Negative (Negative); Blood, Urine 3+ (Negative); Color,Urine YELLOW (Yellow); Glucose,Urine (UA) Negative (Negative); Ketones,Urine Negative (Negative); Leukocyte Esterase,Urine Negative (Negative); Nitrate,Urine Negative (Negative); PH,Urine 5.5 (5.0-8.5); Protein,Urine TRACE (Negative); Specific Gravity, Urine 1.015 (1.005-1.030); Urobilinogen,Urine 0.2 EU/dl (0.2)
[2024-06-27 14:22] LABS: RBC,Urine 20-50 #/hpf (0-3)
[2024-06-27 14:23] LABS: Bacteria,Urine 2+ /lpf
== END 2024-06-27 23:59 | disposition home or self-care (01) ==
LOC: LAB.DROPOF 13:58
PROVIDERS: PCP Nurse Practitioner Family; Visit Provider Nurse Practitioner Family
DX: R31.9 Hematuria, unspecified (principal)
CPT/HCPCS: 81001; 87086

== ENCOUNTER 2024-07-09 15:32 | Outpatient (CLI) | payer OTHER, SELFPAY ==
[2024-07-09 16:27] LABS: Basophils % 0.5 % (0.1-2.0); Eosinophils % 0.7 % (0.1-12.0); Hemoglobin 11.8 g/dL (12.2-16.2); Lymphocytes # 1.8 K/mm3 (0.7-4.5); Lymphocytes % 30.3 % (10-50); Mean Corpuscular HGB Conc 32.8 g/dL (31.8-35.4); Mean Corpuscular Hemoglobin 29.9 pg (27.0-31.2); Mean Corpuscular Volume 91.4 fl (81-99); Mean Platelet Volume 9.3 fl (7.4-10.4); Monocytes # 0.5 K/mm3 (0.1-1.0); Monocytes % 8.5 % (1.7-9.3); Neutrophils # 3.5 K/mm3 (1.8-7.8); Neutrophils % 59.8 % (37.0-80.0); Platelet Count 257 K/mm3 (142-424); Red Blood Count 3.94 M/mm3 (4.20-5.40); Red Cell Distribution Width 12.7 % (11.5-17.5); White Blood Count 5.8 K/mm3 (4.8-10.8)
[2024-07-09 16:53] LABS: Blood Urea Nitrogen 14 mg/dl (7-17); Estimated Glomerular Filt Rate 75 ml/min (>60); GFR (African American) 90 ML/MIN (>60)
[2024-07-09 17:33] LABS: Lipase 314 U/L (23-300)
== END 2024-07-09 23:59 | disposition home or self-care (01) ==
LOC: LAB 15:36
PROVIDERS: Internal Medicine Nephrology; PCP Internal Medicine; Visit Provider Internal Medicine
DX: Z01.812 Encounter for preprocedural laboratory examination (principal); D64.9 Anemia, unspecified; R74.8 Abnormal levels of other serum enzymes
CPT/HCPCS: 36415; 82565; 83690; 84520; 85025

== ENCOUNTER 2024-07-10 10:28 | Outpatient (CLI) | payer OTHER, SELFPAY ==
--- NOTE | 2024-07-10 10:32 | MR_ITS ---
FINAL REPORT TECHNIQUE: Multiplanar MR imaging of the abdomen was obtained without and with contrast. 3D MRA images were performed on postcontrast imaging. CLINICAL HISTORY: polycystic kidneys, blood when urinating COMPARISON: CT dated 06/02/2024 FINDINGS: MR: Abdominal aorta is normal. Mesenteric and renal arteries are widely patent. Abdomen: The kidneys have an extremely complicated appearance due to the presence of multiple masses due to polycystic renal disease. The masses are varying in signal intensity due to presence of proteinaceous and simple cysts. There is no gross enhancing mass present. A few of the masses have fluid/fluid levels which would suggest intracystic hemorrhage. There is no hydronephrosis. The liver and spleen are unremarkable. The pancreas is grossly unremarkable. IMPRESSION: Marked renal enlargement due to complicated polycystic renal disease with innumerable complex renal cysts. No evidence of upper urinary tract infection. No evidence of renal artery stenosis. Reviewed, Interpreted and Dictated by Violeta Yanez MD Transcribed by Beverly Nichols Authenticated and [facility]
[2024-07-10] MEDS: GADOTERIDOL INJ 20ML SYRINGE 11 ML IV (11:40)
[2024-07-10] MEDS: 0.9 % SODIUM CHLORIDE 50 ML VIAL IV (11:40)
[2024-07-10] MEDS: SODIUM CHLORIDE 0.9% 10ML SYR (RAD ONLY) 10 ML IV (11:40)
== END 2024-07-10 23:59 | disposition home or self-care (01) ==
LOC: RAD 10:29
PROVIDERS: PCP Internal Medicine; Visit Provider Internal Medicine Nephrology
DX: Q61.2 Polycystic kidney, adult type (principal)
CPT/HCPCS: C8902; 74185; A9576

== ENCOUNTER 2024-08-20 16:02 | Outpatient (CLI) | payer BC, SELFPAY ==
[2024-08-20 16:47] LABS: Amylase 102 U/L (30-110); Lipase 287 U/L (23-300)
[2024-08-20 16:49] LABS: Alanine Aminotransferase 23 U/L (12-78); Albumin Level 4.7 g/dl (3.5-5.0); Albumin/Globulin Ratio 1.5 (1.1-1.8); Alkaline Phosphatase 43 U/L (38-126); Anion Gap 12.2 mEq/L (5-15); Aspartate Amino Transferase 29 U/L (14-36); Bilirubin,Total 0.6 mg/dl (0.2-1.3); Blood Urea Nitrogen 23 mg/dl (7-17); Calcium 9.7 mg/dl (8.4-10.2); Carbon Dioxide 26 mmol/L (22.0-30.0); Chloride 102 mmol/L (98-107); Estimated Glomerular Filt Rate 49 ml/min (>60); GFR (African American) 59 ML/MIN (>60); Globulin 3.1 g/dL (1.3-3.2); Glucose 90 mg/dl (74-100); Potassium 4.2 mmoL/L (3.5-5.1); Sodium 136 mmol/L (136-145); Total Protein,Serum 7.8 g/dl (6.3-8.2)
== END 2024-08-20 23:59 | disposition home or self-care (01) ==
PROVIDERS: Internal Medicine Nephrology; PCP Internal Medicine; Visit Provider Internal Medicine
DX: R74.8 Abnormal levels of other serum enzymes (principal)
CPT/HCPCS: 36415; 80053; 82150; 83690